=== PATIENT | female | born 1955 | race Caucasian/White ===

== ENCOUNTER 2020-12-04 21:52 | Observation (INO) | payer OTHER ==
[~2020-12-04] VITALS: Ht 152.4 cm; Wt 82.3 kg
--- NOTE | 2020-12-04 22:35 | REPVR ---
PROCEDURE INFORMATION: Exam: CT Head Without Contrast Exam date and time: 12/04/2020 10:20 PM Age: 64 years old Clinical indication: Pain; Other: CVA - nursing interventions must not delay CT TECHNIQUE: Imaging protocol: Computed tomography of the head without contrast. Radiation optimization: All CT scans at this facility use at least one of these dose optimization techniques: automated exposure control; mA and/or kV adjustment per patient size (includes targeted exams where dose is matched to clinical indication); or iterative reconstruction. COMPARISON: No relevant prior studies available. FINDINGS: Brain: Normal. No hemorrhage. Unremarkable white matter. No mass effect. Cerebral ventricles: No ventriculomegaly. Paranasal sinuses: Visualized sinuses are unremarkable. No fluid levels. Mastoid air cells: Visualized mastoid air cells are well aerated. Bones/joints: Unremarkable. No acute fracture. Soft tissues: Unremarkable. IMPRESSION: No acute intracranial abnormality. Electronically signed by: Lance Pierre On 12/04/2020 22:35:33 PM
--- NOTE | 2020-12-04 22:52 | REPVR ---
PROCEDURE INFORMATION: Exam: XR Chest Exam date and time: 12/04/2020 10:33 PM Age: 64 years old Clinical indication: Other: CVA TECHNIQUE: Imaging protocol: XR of the chest. Views: 1 view. COMPARISON: No relevant prior studies available. FINDINGS: Lungs: Unremarkable. No consolidation. Pleural spaces: Unremarkable. No pleural effusion. No pneumothorax. Heart/Mediastinum: Unremarkable. No cardiomegaly. Bones/joints: Unremarkable. IMPRESSION: No acute findings. Electronically signed by: Lance Pierre On 12/04/2020 22:51:21 PM
[2020-12-04 22:57] LABS: BASO # 0.1 10^3/uL (0.0-0.2); BASO % 0.6 % (0.0-1.0); EOS # 0.1 10^3/uL (0.0-0.5); EOS % 1.1 % (0.0-3.0); HEMATOCRIT 46.7 % (36.0-47.0); HEMOGLOBIN 15.1 g/dl (12.0-15.5); LYMPH # 1.8 10^3/uL (1.5-5.0); LYMPH % 13.8 % (24.0-44.0); MEAN CORPUSCULAR HEMOGLOBIN 27.9 pg (27.0-33.0); MEAN CORPUSCULAR HGB CONC 32.3 g/dl (32.0-36.5); MEAN CORPUSCULAR VOLUME 86.3 fl (80.0-96.0); MONO # 0.9 10^3/uL (0.0-0.8); MONO % 7.2 % (2.0-8.0); NEUTROPHILS # 9.9 10^3/uL (1.5-8.5); PLATELET COUNT, AUTOMATED 276 10^3/uL (150-450); RED BLOOD COUNT 5.41 10^6/uL (4.00-5.40); WHITE BLOOD COUNT 12.8 10^3/uL (4.0-10.0)
[2020-12-04] MEDS ORDERED: METO1TAB33 PO (22:57)
[2020-12-04] MEDS ORDERED: OMEP40CA4 PO (22:57)
[2020-12-04] MEDS ORDERED: ROSU20TA5 PO (22:57)
[2020-12-04] MEDS ORDERED: LOSA100T50 PO (22:57)
[2020-12-04] MEDS ORDERED: LORazepam 2 MG/ML VIAL IV STA (23:21)
[2020-12-04 23:23] LABS: CK-MB VALUE MASS 1.7 NG/ML (<3.6); CPK CREATINE PHOSPHOKINASE 40 U/L (26-192); MB/CK RELATIVE INDEX 4.25 (< OR =4); TROPONIN I < 0.02 NG/ML (< 0.10)
[2020-12-04 23:43] LABS: ETHYL ALCOHOL (ETHANOL) < 0.003 % (0.000-0.010)
[2020-12-05] VITALS (7 sets, daily range): BP systolic 133–184; BP diastolic 73–100
--- NOTE | 2020-12-05 03:37 | REPVR ---
PROCEDURE INFORMATION: Exam: MR Head Without Contrast Exam date and time: 12/05/2020 3:03 AM Age: 64 years old Clinical indication: Dizziness and other: Vertigo; Additional info: New onset, severe vertigo TECHNIQUE: Imaging protocol: MR of the head without contrast. COMPARISON: CT Head without contrast 2020-12-04 22:17 FINDINGS: Brain: Questionable tiny punctate recent lacunar infarct in the right cheri midbrain junction on series 204, image 1. Mild scattered FLAIR hyperintense foci within the supratentorial deep and subcortical white matter suggesting mild chronic small vessel ischemic disease. No gradient susceptibility blooming within the brain parenchyma to suggest hemorrhage. No midline shift, mass, or fluid collection is present. Diffuse cerebral age related volume loss. Cerebral ventricles: Normal. No ventriculomegaly. Bones/joints: Unremarkable. Paranasal sinuses: Normal as visualized. No acute sinusitis. Mastoid air cells: Normal as visualized. No mastoid effusion. Orbital cavity: Unremarkable. Soft tissues: Unremarkable. Vertebral arteries: Indentation of the left aspect of the cervicomedullary junction by a tortuous ectatic left vertebral artery, refer to series 501, image 1. IMPRESSION: 1. Questionable tiny punctate recent lacunar infarct in the right cheri midbrain junction on series 204, image 1. 2. Indentation of the left aspect of the cervicomedullary junction by a tortuous ectatic left vertebral artery, refer to series 501, image 1. Electronically signed by: Lance Pierre On 12/05/2020 03:36:14 AM
--- NOTE | 2020-12-05 03:46 | REPVR ---
PROCEDURE INFORMATION: Exam: MRA Head Without Contrast; Arteriography Exam date and time: 12/05/2020 3:03 AM Age: 64 years old Clinical indication: Vertigo; Additional info: New onset, severe vertigo TECHNIQUE: Imaging protocol: Magnetic resonance angiography head without contrast. Exam focused on the arteries. COMPARISON: CT Head without contrast 2020-12-04 22:17 FINDINGS: ANTERIOR CIRCULATION: Right internal carotid artery: Possible 2 mm right paraclinoid ICA lateral projecting aneurysm versus atherosclerotic irregularity. Right middle cerebral artery: No occlusion or significant stenosis. No aneurysm. Right anterior cerebral artery: Mild moderate distal right MODE A1 segment stenosis. Large anterior communicating artery. Left internal carotid artery: Possible 2 mm left paraclinoid lateral projecting ICA aneurysm versus atherosclerotic irregularity. Left middle cerebral artery: No occlusion or significant stenosis. No aneurysm. Left anterior cerebral artery: No occlusion or significant stenosis. No aneurysm. POSTERIOR CIRCULATION: Right vertebral artery: No occlusion or significant stenosis. No aneurysm. Left vertebral artery: Left vertebral artery and prominent PICA branch course along the left anterior aspect of cranial cervical junction and indent the cervicomedullary junction of the spinal cord. Widely patent left vertebral artery. Basilar artery: No occlusion or significant stenosis. No aneurysm. Right posterior cerebral artery: No occlusion or significant stenosis. No aneurysm. Left posterior cerebral artery: Patent type left JACKERMAN. IMPRESSION: 1. Left vertebral artery and prominent PICA branch course along the left anterior aspect of cranial cervical junction and indent the cervicomedullary junction of the spinal cord. 2. Possible 2 mm left paraclinoid lateral projecting ICA aneurysm versus atherosclerotic irregularity. Possible 2 mm right paraclinoid ICA lateral projecting aneurysm versus atherosclerotic irregularity. 3. Patent type left JACKERMAN. 4. Mild moderate distal right MODE A1 segment stenosis. Large anterior communicating artery. Electronically signed by: Lance Pierre On 12/05/2020 03:46:18 AM
[2020-12-05] MEDS ORDERED: LABETALOL 100MG/20ML VIAL IV STA (04:18)
[2020-12-05] MEDS ORDERED: CETI-24 PO (04:40)
[2020-12-05] MEDS ORDERED: AMOX875T2 PO (04:40)
[2020-12-05] MEDS ORDERED: MAALOX 30 ML SUSP *UDC PO PRN (05:00)
[2020-12-05] MEDS ORDERED: NICOTINE 21MG/24HR 1 EA TRANSDERMAL TD ONE (05:00)
[2020-12-05] MEDS ORDERED: MOM 30ML SUSPENSION UDC PO PRN (05:00)
--- NOTE | 2020-12-05 05:38 | HPEPDOC ---
[facility] Medical History & Physical Date of Admission Dec 05, 2020 Date of Service: Dec 05, 2020 Attending Physician: ANNELIESE RADFORD MD History and Physical CHIEF COMPLAINT: Dizziness, left side numbness with slurred speech and confusion HISTORY OF PRESENT ILLNESS: Ms. Sheets is a 64-year-old female who is brought to the ER by family with complaints of dizziness, left-sided numbness and slurred speech with some confusion. By the time she had arrived at ER, the left-sided numbness, slurred speech and confusion had resolved. The patient had been having these symptoms on and off over the last week or so. Last Sunday she noticed numbness in the right face with pins and needles in her hands and blurred vision, almost to the point of blindness. These symptoms lasted about a minute. She thought it was a reaction to a new medication and took some Benadryl and went" slept it off". She was fine on Sunday and Sunday and on Sunday she started experiencing symptoms again. This time she also had some nausea and a feeling of "not feeling well. He went to [facility] and was admitted. CT scan was negative. She was told to follow-up with primary care for better control of her blood pressure which was elevated. She couldn't get in to see her primary care provider and felt worse. By Sunday, so she went to the hospital at [place]. She was diagnosed and treated for a sinus infection was with felt to be causing all of these symptoms. She was started on amoxicillin and told to follow-up with primary care. She was visiting with family earlier today when she experienced the symptoms noted above. They finally convinced her to come to the ER after a couple of hours. On initial evaluation she was noted to have a blood pressure of 189/94. Heart rate was in the mid 80s. She was afebrile with O2 sats of 90-93% on 2 L of oxygen. The patient continues to smoke at least a pack of cigarettes per day. She tells me she was previously diagnosed with atrial fibrillation but it was felt to be secondary to diet pills. She thinks that one of the doctors at the other 2 facilities in the last week. Said that her atrial fib was still present. She is not on blood thinners and states she is allergic to aspirin. She does take metoprolol daily. She stopped taking her statin about a year ago because she "ran out". She said with Covid, and babysitting her grandson, the timing was never right to make an appointment with a physician to get that prescription renewed. Chest x-ray and CT scan were negative. MRI showed the paranasal sinuses with no acute sinusitis. There was a tiny punctate recent lacunar infarct in the right cheri, midbrain junction. There is also an indentation of the left aspect of the cervical medullary junction by a tortuous ectatic left vertebral artery. MRA showed a left vertebral artery and prominent PICA branch coursed along the left anterior aspect of the cranial cervical junction and indent the cervical medullary junction of the spinal cord. There was a possible 2 mm left paraclinoid lateral projecting ICA aneurysm versus atherosclerotic irregularity. There was also a possible 2 mm right paraclinoid ICA. Lateral projecting aneurysm versus atherosclerotic irregularity. 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 There was a large anterior communicating artery. Patient was not a candidate for TPA as she arrived at the hospital outside of the window from the time of onset of symptoms. She was given a dose of labetalol in the ER as well as 1 mg of Ativan. PAST MEDICAL HISTORY: 1. Hypertension. 2. Hyperlipidemia. 3. Atrial fibrillation, possibly secondary to diet pills. 4. Hyperlipidemia PAST SURGICAL HISTORY: 1. Hysterectomy. 2. . 3. Meniscus repair. 4. Heart catheterization. 5. Cataracts. 6. Appendectomy SOCIAL HISTORY: Tobacco use: Patient currently smokes at least one pack of cigarettes per day ETOH: She denies alcohol Illicit drug use: Denies illegal drugs FAMILY HISTORY: Family history was thoroughly reviewed and found to be noncontributory. REVIEW OF SYSTEMS: Complete 10 point review systems is negative except as noted above PHYSICAL EXAMINATION: Patient is seen in the ER, lying on the stretcher.. She complains of being tired and is a little bit lethargic but oriented x 3. HEENT is WNL. . There is no facial droop. Tongue is midline. Speech is clear and easily understood. Neck is supple. Lungs with some expiratory wheeze. Heart regular rate and rhythm without murmur. Abdomen is soft, non-tender to palpation with bowel sounds positive. Extremities with good ROM and strength equal bilaterally. No lower extremity edema. Pedal pulses are positive. Skin is warm and dry with no obvious rash or lesion. Neuro: grossly intact. Psych: As noted. ASSESSMENT AND PLAN: 1. Cerebrovascular accident. Patient will be restarted on statin and will add Plavix with allergy to aspirin. We'll ask physical and occupational therapist to evaluate and treat. Will check lipid panel and TSH. Patient would benefit from a neurology consult. 2. Hypertension, essential. Continue home metoprolol and losartan. Will monitor with routine vital signs and adjust medications as needed based on trends. 3. Leukocytosis secondary to acute cerebrovascular accident. Patient will be continued on home amoxicillin for now for treatment of reported acute sinusitis. Recheck white blood cell count in the morning. 4. Hyperlipidemia. Continue statin. 5. Hyperglycemia with no history of diabetes. Will check HbA1c in the morning. Monitor blood glucose with daily labs. 6. Tobacco abuse. Patient will be counseled for cessation. Nicotine patch. 7. History of atrial fibrillation on no anticoagulation. Continue metoprolol. Monitor on telemetry. May need to consider addition of anticoagulation. Will start the patient on Plavix for now. 8. DVT prophylaxis. Will add Lovenox. CODE STATUS: CODE STATUS was discussed with the patient. He desires to be considered a full code. She states her sister, Elizabeth Moralez, would act as her surrogate if she were unable to make her own decisions. Patient is considered high risk of further deterioration including extension of stroke. She is admitted for close observation and further evaluation and expected to remain at least one midnight. Vital Signs Vital Signs Date Time Temp Pulse Resp B/P (MAP) Pulse Ox O2 Delivery O2 Flow Rate FiO2 12/05/20 03:37 85 18 90 Nasal Cannula 2.0 12/05/20 03:26 179/102 (127) 12/04/20 22:10 98.1 Laboratory Data Labs 24H Laboratory Tests 2 12/04/20 22:45: Bedside Glucose (Misc Panel) 134H 12/04/20 22:46: Immature Granulocyte % (Auto) 0.3, Neutrophils (%) (Auto) 77.0H, Lymphocytes (%) (Auto) 13.8L, Monocytes (%) (Auto) 7.2, Eosinophils (%) (Auto) 1.1, Basophils (%) (Auto) 0.6, Neutrophils # (Auto) 9.9H, Lymphocytes # (Auto) 1.8, Monocytes # (Auto) 0.9H, Eosinophils # (Auto) 0.1, Basophils # (Auto) 0.1, Nucleated Red Blood Cells % (auto) 0.0, Activated Partial Thromboplast Time 37.1, Total Creatine Kinase 40, Creatine Kinase MB 1.7, Creatine Kinase MB Relative Index 4.25H, Troponin I < 0.02, Ethyl Alcohol Level < 0.003 12/04/20 22:47: POC Glucose (Misc Panel) 129H, POC Sodium (Misc Panel) 144, POC Potassium (Misc Panel) 3.5, POC Chloride (Misc Panel) 104, POC Total CO2 (Misc Panel) 25.0, POC Blood Urea Nitrogen (Misc Panel 11, POC Ionized Calcium (Misc Panel) 4.7, POC Creatinine (Misc Panel) 0.5L, POC Hematocrit (Misc Panel) 46.0 12/04/20 22:50: POC Prothrombin Time (Misc) 12.4, POC INR (Misc) 1.0 CBC/BMP Laboratory Tests 12/04/20 22:46 Home Medications Scheduled Amoxicillin/Potassium Clav (Amox-Clav 875-125 mg Tablet) 1 Each Tablet, 1 TAB PO BID started on 12/04/20 x 10 days Cetirizine HCl (Cetirizine HCl) 10 Mg Tablet, 10 MG PO DAILY Losartan Potassium (Losartan Potassium) 100 Mg Tablet, 100 MG PO DAILY Metoprolol Succinate (Metoprolol Succinate) 100 Mg Tab.er.24h, 100 MG PO DAILY Omeprazole (Omeprazole) 40 Mg Capsule.dr, 40 MG PO DAILY Rosuvastatin Calcium (Rosuvastatin Calcium) 20 Mg Tablet, 20 MG PO QPM Allergies Coded Allergies: erythromycin base (Verified Allergy, Unknown, 12/04/20) atorvastatin (Verified Adverse Reaction, Unknown, PRICKLY SENSATION IN CHEST, 12/04/20) tetracycline (Verified Adverse Reaction, Unknown, GERD, 12/04/20) A-FIB/CHADSVASC A-FIB History Current/History of A-Fib/PAF?: Yes Current PO Anticoag Therapy: No Age/Risk Factor Scoring CHADSVASC: CHADSVASC Response (Comments) Value Age Risk Factor Age < 65 years old 0 Gender Risk Factor Female 1 Hx of CHF No 0 Hx of HTN Yes 1 Hx of Stroke/TIA/or VTE Yes 2 Hx of Diabetes No 0 Hx of Vascular Disease No 0 Total 4 Treatment Treatment ordered: NONE Reason Anticoagulant not given: Other Other reason anticoagulant not: Awaiting Neurology consult and possible Cardiac consult MARIA L WAITE Dec 05, 2020 05:38
[2020-12-05 05:59] LABS: RSV AMPLIFICATION NEGATIVE (NEGATIVE)
[2020-12-05 07:46] LABS: HEMATOCRIT 46.1 % (36.0-47.0); HEMOGLOBIN 14.5 g/dl (12.0-15.5); MEAN CORPUSCULAR HEMOGLOBIN 27.4 pg (27.0-33.0); MEAN CORPUSCULAR HGB CONC 31.5 g/dl (32.0-36.5); PLATELET COUNT, AUTOMATED 273 10^3/uL (150-450); WHITE BLOOD COUNT 8.6 10^3/uL (4.0-10.0)
[2020-12-05 08:02] LABS: HEMOGLOBIN A1c 6.2 %
[2020-12-05] MEDS: ENOXAPARIN 40MG/0.4ML SYRINGE (J1650 PER 10MG) SC SCH (08:04)
[2020-12-05] MEDS: LOSARTAN 50MG TABLET PO SCH (08:05)
[2020-12-05] MEDS: OMEPRAZOLE 20 MG CAP PO SCH (08:05)
[2020-12-05] MEDS: CLOPIDOGREL 75 MG TAB PO SCH (08:05)
[2020-12-05] MEDS: METOPROLOL SUCC (TopROL XL) 100MG *XL* TAB PO SCH (08:06)
[2020-12-05] MEDS: CETIRIZINE (ZyrTEC) 10 MG TAB PO SCH (08:06)
[2020-12-05] MEDS: ACETAMINOPHEN TAB 650MG DOSE (2X325MG) PO PRN (08:08)
[2020-12-05 08:19] LABS: BLOOD UREA NITROGEN 9 MG/DL (7-18); CALCIUM LEVEL 8.6 MG/DL (8.8-10.2); CARBON DIOXIDE LEVEL 31 MEQ/L (21-32); CHLORIDE LEVEL 108 MEQ/L (98-107); CHOLESTEROL LEVEL 250 MG/DL (<200); CHOLESTEROL RISK RATIO 5.952 (<5); GLOMERULAR FILTRATION RATE > 60.0 (>45); GLUCOSE, FASTING 132 MG/DL (70-100); HDL CHOLESTEROL 42 MG/DL (>40); LDL CHOLESTEROL 174 MG/DL (<100); MAGNESIUM LEVEL 2.2 MG/DL (1.8-2.4); NON-HDL-C 208 MG/DL; POTASSIUM SERUM 3.8 MEQ/L (3.5-5.1); SODIUM LEVEL 143 MEQ/L (136-145); TRIGLYCERIDES LEVEL 171 MG/DL (<150)
[2020-12-05] MEDS ORDERED: AUGMENTIN 875 MG TAB PO SCH ×2 (09:00→11:03)
[2020-12-05] MEDS: AUGMENTIN 875 MG TAB PO SCH ×2 (11:07→20:19)
[2020-12-05] MEDS ORDERED: hydrALAZINE 20MG/ML 1ML VIAL (J0360 PER 20MG) IV PRN (12:00)
--- NOTE | 2020-12-05 12:42 | ECHO ---
ECHOCARDIOGRAM DATE OF PROCEDURE: 12/05/2020 Age: 64 Gender: Female Height: 152 cm. Weight: 82 kg. REFERRING PHYSICIAN: Khanh Del Rosario M.D. INDICATION: Stroke. MEASUREMENTS: IVS 1.0 cm LV 5.1 cm LVPW 1.2 cm LA 3.4 cm Aorta 3.2 cm Left atrium volume 26 mL/m2 Mitral E wave velocity 78 cm/sec A wave 81 cm/sec E prime septal 5.6 cm/sec E prime lateral 5.8 cm/sec FINDINGS: This study is of fair technical quality with limited visualization. Left ventricle is normal size. Borderline left ventricular hypertrophy (LVH) is noted. Overall likely normal left ventricular (LV) systolic function based on fair views. I estimate ejection fraction (EF) around 55-60%. Right ventricle was poorly visualized, but appears normally contractile. I cannot rule out mild enlargement. Both atria appear normal. Aortic, mitral and tricuspid valves also appear normal based on fair views. Pulmonic valve was not visualized. No pericardial effusion was noted. Inferior vena cava was not seen. Aortic root and aortic arch appear normal. Abdominal aorta was not visualized. Doppler interrogation revealed competent aortic, mitral and tricuspid valves. Mitral inflow pattern and tissue Doppler velocity of mitral annulus revealed grade 1 diastolic dysfunction. CONCLUSIONS: 1. Study is of acceptable technical quality, underlying sinus rhythm. 2. Normal left ventricular (LV) size with likely normal LV systolic function and grade 1 diastolic dysfunction. 3. No significant valvular disease. 4. Unable to estimate central venous pressure and pulmonary artery pressure. 5. Negative "bubble study," indicative of absence of intracardiac shunt. MTDD
[2020-12-05] MEDS ORDERED: CHLORTHALIDONE 25 MG TAB PO ONE (14:00)
--- NOTE | 2020-12-05 15:47 | IPNPDOC ---
Text Note Date of Service The patient was seen on 12/05/20. NOTE Subjective: No any acute events overnight, patient denied any neurological de ficit Objective: GENERAL APPEARANCE: NAD HEENT: no scleral icterus, no JVD, EOMI CARDIOVASCULAR: S1S2 LUNGS: CTA ABDOMEN: soft & not tender w palpitation MUSCULOSKELETAL: no cyanosis, no swelling INTEGUMENT: no generalized pallor NEUROLOGICAL: cranial nerve function from 2-12 intact intact, follows commands, speech not dysarthric Assessment and plan Patient 64 years old female with past medical history of hypertension, hyperlipidemia, atrial fibrillation presented to hospital with dizziness, left- sided numbness and slurred speech. TIA I talked to neurologist team Dr. Leo he recommended to repeat MRI because patient's symptoms could be attributed to hypertensive emergency, keep systolic blood pressure below 140 MRI showed Questionable tiny punctate recent lacunar infarct in the right cheri midbrain junction on series 204, image 1 Echo negative for PFO, stage I diastolic dysfunction Statin, Plavix Appreciate/agree with neurologist consult Telemetry Hypertension Amlodipine, chlorthalidone, losartan Atrial fibrillation Paroxysmal Started anticoagulation with Xarelto Hyperlipidemia Continue statin Smoking abuse Counseling VS,Khloe, I+O VS, Khloe, I+O Laboratory Tests 12/04/20 22:46 12/05/20 07:33 Vital Signs Date Time Temp Pulse Resp B/P (MAP) Pulse Ox O2 Delivery O2 Flow Rate FiO2 12/05/20 14:46 166/100 (122) 12/05/20 12:00 97.5 78 17 91 Nasal Cannula 2.0 DENNIS SHANE DO Dec 05, 2020 15:47
[2020-12-05] MEDS: **hydrALAZINE** 10 MG TAB PO SCH ×2 (16:35→22:37)
[2020-12-05] MEDS: RIVAROXABAN 20 MG TAB (XARELTO) PO SCH (17:52)
[2020-12-05] MEDS: CHLORTHALIDONE 25 MG TAB PO SCH (20:18)
[2020-12-05] MEDS: ROSUVASTATIN 10 MG TAB (CRESTOR) PO SCH (20:23)
--- NOTE | 2020-12-05 22:05 | ECGEPIP ---
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
[2020-12-06] VITALS (7 sets, daily range): BP systolic 125–152; BP diastolic 66–90
[2020-12-06 05:30] LABS: HEMATOCRIT 48.5 % (36.0-47.0); HEMOGLOBIN 15.7 g/dl (12.0-15.5); MEAN CORPUSCULAR HEMOGLOBIN 27.9 pg (27.0-33.0); MEAN CORPUSCULAR HGB CONC 32.4 g/dl (32.0-36.5); MEAN CORPUSCULAR VOLUME 86.3 fl (80.0-96.0); PLATELET COUNT, AUTOMATED 297 10^3/uL (150-450); RED BLOOD COUNT 5.62 10^6/uL (4.00-5.40); WHITE BLOOD COUNT 8.8 10^3/uL (4.0-10.0)
[2020-12-06] MEDS: **hydrALAZINE** 10 MG TAB PO SCH ×2 (05:49→13:25)
[2020-12-06 05:50] LABS: BLOOD UREA NITROGEN 11 MG/DL (7-18); CALCIUM LEVEL 9.1 MG/DL (8.8-10.2); CARBON DIOXIDE LEVEL 32 MEQ/L (21-32); CHLORIDE LEVEL 105 MEQ/L (98-107); CREATININE FOR GFR 0.68 MG/DL (0.55-1.30); GLOMERULAR FILTRATION RATE > 60.0 (>45); GLUCOSE, FASTING 134 MG/DL (70-100); POTASSIUM SERUM 3.9 MEQ/L (3.5-5.1); SODIUM LEVEL 142 MEQ/L (136-145)
[2020-12-06] MEDS ORDERED: CHLORTHALIDONE 25 MG TAB PO SCH ×2 (09:00→21:00)
[2020-12-06] MEDS: ENOXAPARIN 40MG/0.4ML SYRINGE (J1650 PER 10MG) SC SCH (09:38)
[2020-12-06] MEDS: OMEPRAZOLE 20 MG CAP PO SCH (09:39)
[2020-12-06] MEDS: CETIRIZINE (ZyrTEC) 10 MG TAB PO SCH (09:40)
[2020-12-06] MEDS: METOPROLOL SUCC (TopROL XL) 100MG *XL* TAB PO SCH (09:40)
[2020-12-06] MEDS: CLOPIDOGREL 75 MG TAB PO SCH (09:40)
[2020-12-06] MEDS: LOSARTAN 50MG TABLET PO SCH (09:40)
[2020-12-06] MEDS: CHLORTHALIDONE 25 MG TAB PO SCH (09:41)
[2020-12-06] MEDS: AUGMENTIN 875 MG TAB PO SCH ×2 (09:41→20:09)
[2020-12-06] MEDS: ACETAMINOPHEN TAB 650MG DOSE (2X325MG) PO PRN (11:07)
[2020-12-06] MEDS ORDERED: LORazepam 2 MG/ML VIAL IV ONE (13:40)
--- NOTE | 2020-12-06 13:55 | IPNPDOC ---
Text Note Date of Service The patient was seen on 12/06/20. NOTE Subjective: No any acute events overnight. Patient denied any focal weaknesses or numbness Objective: GENERAL APPEARANCE: NAD HEENT: no scleral icterus, no JVD, EOMI CARDIOVASCULAR: S1S2 LUNGS: CTA ABDOMEN: soft & not tender w palpitation MUSCULOSKELETAL: no cyanosis, no swelling INTEGUMENT: no generalized pallor NEUROLOGICAL: cranial nerve function from 2-12 intact intact, follows commands, speech not dysarthric Assessment and plan Patient 64 years old female with past medical history of hypertension, hyperlipidemia, atrial fibrillation presented to hospital with dizziness, left- sided numbness and slurred speech. TIA I talked to neurologist team Dr. Leo he recommended to repeat MRI because patient's symptoms could be attributed to hypertensive emergency, keep systolic blood pressure below 140 MRI showed Questionable tiny punctate recent lacunar infarct in the right cheri midbrain junction on series 204, image 1 Echo negative for PFO, stage I diastolic dysfunction Statin, Plavix Telemetry We will repeat MRI today Hypertension Blood pressure under control Amlodipine, chlorthalidone, losartan Atrial fibrillation Paroxysmal Started anticoagulation with Xarelto Hyperlipidemia Continue statin Smoking abuse Counseling VS,Khloe, I+O VS, Khloe, I+O Laboratory Tests 12/06/20 05:02 Vital Signs Date Time Temp Pulse Resp B/P (MAP) Pulse Ox O2 Delivery O2 Flow Rate FiO2 12/06/20 13:25 152/77 12/06/20 12:00 98.6 74 18 93 Room Air 12/05/20 16:00 2.0 I&O- Last 24 Hours up to 6 AM 12/06/20 06:00 Intake Total 1200 ml Output Total 2850 ml Balance -1650 ml DENNIS SHANE DO Dec 06, 2020 13:55
[2020-12-06] MEDS ORDERED: LORazepam 2 MG/ML VIAL As Ordered ONE (14:35)
--- NOTE | 2020-12-06 16:42 | REPVR ---
PROCEDURE INFORMATION: Exam: MR Head Without Contrast Exam date and time: 12/06/2020 4:02 PM Age: 64 years old Clinical indication: Altered mental status/memory loss; Confusion or disorientation; Patient HX: AMS that has since subsided; Additional info: R/O stroke TECHNIQUE: Imaging protocol: MR of the head without contrast. COMPARISON: MRI-Brain without Contrast 12/05/2020 2:44 AM FINDINGS: Brain: There is no evidence of an acute ischemic event. Signal changes in the periventricular white matter are nonspecific but statistically most likely reflect chronic microvascular ischemic disease. There is no evidence of intracranial hemorrhage. No abnormal extra-axial fluid collections are identified. Cerebral ventricles: The ventricles are normal in size and configuration. Paranasal sinuses: There is mild sinus mucosal disease, with no air-fluid level identified. Mastoid air cells: There is no mastoid effusion detected. Orbital cavity: The appearance of the optic globes suggests previous bilateral cataract surgery. IMPRESSION: 1. No acute ischemia, mass or hemorrhage. 2. Signal changes in the periventricular white matter are nonspecific but statistically most likely reflect chronic microvascular ischemic disease. Electronically signed by: Kayla Brady On 12/06/2020 16:42:17 PM
[2020-12-06] MEDS ORDERED: XARE20TA PO (17:32)
[2020-12-06] MEDS ORDERED: CLOP75TA2 PO (17:32)
[2020-12-06] MEDS ORDERED: CHLO25TA PO (17:32)
[2020-12-06] MEDS ORDERED: AMLO1TAB25 PO (17:32)
--- NOTE | 2020-12-06 17:43 | DS.PDOC ---
Discharge Summary General Date of Admission Dec 04, 2020 at 21:53 Date of Discharge 12/06/20 Discharge Summary PROCEDURES PERFORMED DURING STAY: [None]. ADMITTING DIAGNOSES: TIA Hypertension Atrial fibrillation Hyperlipidemia Smoking abuse DISCHARGE DIAGNOSES: Hypertensive urgency TIA Hypertension Atrial fibrillation Hyperlipidemia Smoking abuse COMPLICATIONS/CHIEF COMPLAINT: CVA. HISTORY OF PRESENT ILLNESS:Ms. Sheets is a 64-year-old female who is brought to the ER by family with complaints of dizziness, left-sided numbness and slurred speech with some confusion. By the time she had arrived at ER, the left- sided numbness, slurred speech and confusion had resolved. The patient had been having these symptoms on and off over the last week or so. Last Sunday she noticed numbness in the right face with pins and needles in her hands and blurred vision, almost to the point of blindness. These symptoms lasted about a minute. She thought it was a reaction to a new medication and took some Benadryl and went" slept it off". She was fine on Sunday and Sunday and on Sunday she started experiencing symptoms again. This time she also had some nausea and a feeling of "not feeling well. He went to [facility] and was admitted. CT scan was negative. She was told to follow-up with primary care for better control of her blood pressure which was elevated. She couldn't get in to see her primary care provider and felt worse. By Sunday, so she went to the hospital at [place]. She was diagnosed and treated for a sinus infection was with felt to be causing all of these symptoms. She was started on amoxicillin and told to follow-up with primary care. She was visiting with family earlier today when she experienced the symptoms noted above. They finally convinced her to come to the ER after a couple of hours. On initial evaluation she was noted to have a blood pressure of 189/94. Heart rate was in the mid 80s. She was afebrile with O2 sats of 90-93% on 2 L of oxygen. The patient continues to smoke at least a pack of cigarettes per day. She tells me she was previously diagnosed with atrial fibrillation but it was felt to be secondary to diet pills. She thinks that one of the doctors at the other 2 facilities in the last week. Said that her atrial fib was still present. She is not on blood thinners and states she is allergic to aspirin. She does take metoprolol daily. She stopped taking her statin about a year ago because she "ran out". She said with Covid, and babysitting her grandson, the timing was never right to make an appointment with a physician to get that prescription renewed. Chest x-ray and CT scan were negative. MRI showed the paranasal sinuses with no acute sinusitis. There was a tiny punctate recent lacunar infarct in the right cheri, midbrain junction. There is also an indentation of the left aspect of the cervical medullary junction by a tortuous ectatic left vertebral artery. MRA showed a left vertebral artery and prominent PICA branch coursed along the left anterior aspect of the cranial cervical junction and indent the cervical medullary junction of the spinal cord. There was a possible 2 mm left paraclinoid lateral projecting ICA aneurysm versus atherosclerotic irregularity. There was also a possible 2 mm right paraclinoid ICA. Lateral projecting a neurysm versus atherosclerotic irregularity. Patient had a patent type left [employer] and a mild to moderate distal right MODE A1 segment stenosis. There was a large anterior communicating artery. Patient was not a candidate for TPA as she arrived at the hospital outside of the window from the time of onset of symptoms. She was given a dose of labetalol in the ER as well as 1 mg of Ativan. HOSPITAL COURSE: During the hospital stay and the following issues addressed TIA I talked to neurologist team Dr. Peñaudin he recommended to repeat MRI because patient's symptoms could be attributed to hypertensive emergency, keep systolic blood pressure below 140 MRI showed Questionable tiny punctate recent lacunar infarct in the right cheri midbrain junction on series 204, image 1. Repeated MRI was negative for stroke, positive for chronic microvascular ischemic disease Echo negative for PFO, stage I diastolic dysfunction Statin, Plavix Telemetry Hypertension Blood pressure under control Amlodipine, chlorthalidone, losartan Atrial fibrillation Paroxysmal Started anticoagulation with Xarelto Hyperlipidemia Continue statin Smoking abuse Counseling DISCHARGE MEDICATIONS: Please see below. ALLERGIES: Please see below. PHYSICAL EXAMINATION ON DISCHARGE: VITAL SIGNS: Please see below. GENERAL APPEARANCE: NAD HEENT: no scleral icterus, no JVD, EOMI CARDIOVASCULAR: S1S2 LUNGS: CTA ABDOMEN: soft & not tender w palpitation MUSCULOSKELETAL: no cyanosis, no swelling INTEGUMENT: no generalized pallor NEUROLOGICAL: cranial nerve function from 2-12 intact intact, follows commands, speech not dysarthric LABORATORY DATA: Please see below. IMAGING: PROCEDURE INFORMATION: Exam: MR Head Without Contrast Exam date and time: 12/06/2020 4:02 PM Age: 64 years old Clinical indication: Altered mental status/memory loss; Confusion or disorientation; Patient HX: AMS that has since subsided; Additional info: R/O stroke TECHNIQUE: Imaging protocol: MR of the head without contrast. COMPARISON: MRI-Brain without Contrast 12/05/2020 2:44 AM FINDINGS: Brain: There is no evidence of an acute ischemic event. Signal changes in the periventricular white matter are nonspecific but statistically most likely reflect chronic microvascular ischemic disease. There is no evidence of intracranial hemorrhage. No abnormal extra-axial fluid collections are identified. Cerebral ventricles: The ventricles are normal in size and configuration. Paranasal sinuses: There is mild sinus mucosal disease, with no air-fluid level identified. Mastoid air cells: There is no mastoid effusion detected. Orbital cavity: The appearance of the optic globes suggests previous bilateral cataract surgery. IMPRESSION: 1. No acute ischemia, mass or hemorrhage. 2. Signal changes in the periventricular white matter are nonspecific but statistically most likely reflect chronic microvascular ischemic disease. PROGNOSIS: Fair ACTIVITY: [As tolerated]. DIET: Cardiac DISCHARGE INSTRUCTIONS: Stop smoking ITEMS TO FOLLOWUP ON ON OUTPATIENT: Follow-up with neurologist in 1 week DISCHARGE CONDITION: [Stable]. TIME SPENT ON DISCHARGE: 40 minutes. Vital Signs/I&Os Vital Signs Date Time Temp Pulse Resp B/P (MAP) Pulse Ox O2 Delivery O2 Flow Rate FiO2 12/06/20 16:00 97.6 83 22 141/78 (99) 93 Room Air 12/05/20 16:00 2.0 I&O- Last 24 Hours up to 6 AM 12/06/20 06:00 Intake Total 1200 ml Output Total 2850 ml Balance -1650 ml Laboratory Data Labs 24H Laboratory Tests 2 12/06/20 05:02: Nucleated Red Blood Cells % (auto) 0.0, Anion Gap 5L, Glomerular Filtration Rate > 60.0, Calcium Level 9.1 CBC/BMP Laboratory Tests 12/06/20 05:02 Discharge Medications Scheduled Amlodipine Besylate (Amlodipine Besylate) 10 Mg Tablet, 10 MG PO DAILY Amoxicillin/Potassium Clav (Amox-Clav 875-125 mg Tablet) 1 Each Tablet, 1 TAB PO BID, (Reported) started on 12/04/20 x 10 days Cetirizine HCl (Cetirizine HCl) 10 Mg Tablet, 10 MG PO DAILY, (Reported) Chlorthalidone (Chlorthalidone) 25 Mg Tablet, 50 MG PO BID Clopidogrel Bisulfate (Clopidogrel) 75 Mg Tablet, 75 MG PO DAILY Losartan Potassium (Losartan Potassium) 100 Mg Tablet, 100 MG PO DAILY, (Repor kris) Metoprolol Succinate (Metoprolol Succinate) 100 Mg Tab.er.24h, 100 MG PO DAILY, (Reported) Omeprazole (Omeprazole) 40 Mg Capsule.dr, 40 MG PO DAILY, (Reported) Rivaroxaban (Xarelto) 20 Mg Tablet, 20 MG PO DAILY@18 Rosuvastatin Calcium (Rosuvastatin Calcium) 20 Mg Tablet, 20 MG PO QPM, (Reported) Allergies Coded Allergies: erythromycin base (Verified Allergy, Unknown, 12/04/20) atorvastatin (Verified Adverse Reaction, Unknown, PRICKLY SENSATION IN CHEST, 12/04/20) tetracycline (Verified Adverse Reaction, Unknown, GERD, 12/04/20) DENNIS SHANE DO Dec 06, 2020 17:43
[2020-12-06] MEDS: RIVAROXABAN 20 MG TAB (XARELTO) PO SCH (18:00)
[2020-12-06] MEDS: ROSUVASTATIN 10 MG TAB (CRESTOR) PO SCH (20:09)
== END 2020-12-06 20:20 | disposition home or self-care (01) ==
LOC: M ED 21:52 → M ED INP 21:53 → ENRESERV 12-05 06:35 → M PCU 12-05 06:50
PROVIDERS: ADMIT Internal Medicine; ATTEND Internal Medicine
DX: I16.0 Hypertensive urgency (principal); G45.9 Transient cerebral ischemic attack, unspecified; I10 Essential (primary) hypertension; I48.91 Unspecified atrial fibrillation; E78.49 Other hyperlipidemia; D72.829 Elevated white blood cell count, unspecified; F17.218 Nicotine dependence, cigarettes, with other nicotine-induced disorders; Z79.01 Long term (current) use of anticoagulants; Z79.899 Other long term (current) drug therapy; Z88.1 Allergy status to other antibiotic agents; Z88.8 Allergy status to other drugs, medicaments and biological substances
CPT/HCPCS: 36415; 70450; 70544; 70551; 71045; 80047; 80048; 80061; 82077; 82550; 82553; 83036; 83735; 84443; 84484; 85025; 85027; 85730; 87631; 93005; 93041; 93306; 94760; 96372; 96374; 96375; 96376; 97116; 97162; 97165; 97530; 99285; J1650; J2060

== ENCOUNTER → 2021-07-05 | Outpatient (CLI) | payer MEDICARE, OTHER ==
[~2021-07-05] MED LIST: AMLO1TAB25 PO; AMOX875T2 PO; CETI-24 PO; CHLO25TA PO; CLOP75TA2 PO; LOSA100T45 PO; METO1TAB33 PO; OMEP40CA4 PO; ROSU20TA5 PO; XARE20TA PO
== END ==
LOC: M PLAIMG 10:48
DX: J01.91 Acute recurrent sinusitis, unspecified (principal); J34.1 Cyst and mucocele of nose and nasal sinus

== ENCOUNTER → 2022-04-16 | Outpatient (REF) | payer MEDICARE, OTHER | LOC: M LAB REF 18:03 | PROVIDERS: ATTEND Physician Assistant | DX: R30.0 Dysuria (principal) ==

== ENCOUNTER → 2023-11-02 | Outpatient (REF) | payer MEDICARE, OTHER ==
[~2023-11-02] MED LIST changes: -LOSA100T45 PO; +LOSA100T46 PO; -ROSU20TA5 PO; +ROSU20TA61 PO
== END ==
LOC: M SFHCPLAZ 17:17
PROVIDERS: ATTEND Family Medicine
DX: K74.00 Hepatic fibrosis, unspecified (principal); E11.9 Type 2 diabetes mellitus without complications; D50.9 Iron deficiency anemia, unspecified; E55.9 Vitamin D deficiency, unspecified; R31.0 Gross hematuria; E78.2 Mixed hyperlipidemia; I10 Essential (primary) hypertension

== ENCOUNTER → 2023-11-06 | Outpatient (REF) | payer MEDICARE, OTHER | LOC: M SFHCPLAZ 14:49 | PROVIDERS: ATTEND Family Medicine | DX: K74.00 Hepatic fibrosis, unspecified (principal); E11.9 Type 2 diabetes mellitus without complications; D50.9 Iron deficiency anemia, unspecified; E55.9 Vitamin D deficiency, unspecified; R31.0 Gross hematuria; E78.2 Mixed hyperlipidemia; I10 Essential (primary) hypertension; Z53.8 Procedure and treatment not carried out for other reasons ==

== ENCOUNTER → 2023-11-06 | Outpatient (CLI) | payer MEDICARE, OTHER ==
[2023-11-06 08:52] LABS: APPEARANCE, URINE CLOUDY (CLEAR); BACTERIA, URINE AUTO 1+ (NEGATIVE); BILIRUBIN, URINE AUTO NEGATIVE (NEGATIVE); BLOOD, URINE BLOOD 3+ (NEGATIVE); COLOR, URINE YELLOW (YELLOW); GLUCOSE, URINE (UA) AUTO 2+ mg/dL (NEGATIVE); KETONE, URINE AUTO NEGATIVE (NEGATIVE); LEUKOCYTE ESTERASE, URINE AUTO 3+ (NEGATIVE); MUCUS, URINE SMALL (NEGATIVE); NITRITE, URINE AUTO NEGATIVE (NEGATIVE); PROTEIN, URINE AUTO 2+ mg/dL (NEGATIVE); RBC, URINE AUTO TNTC /HPF (0-3); SPECIFIC GRAVITY URINE AUTO 1.016 (1.002-1.035); SQUAMOUS EPITHELIAL CELL UR AU 6 /HPF (0-6); TRANSITIONAL EPITHELIAL AUTO 6 /HPF; UROBILINOGEN, URINE AUTO 0.2 mg/dL (0.0-2.0); WBC, URINE AUTO 37 /HPF (0-3)
[2023-11-06 09:13] LABS: CREATININE, URINE 102.2 MG/DL; MAU/CREAT RATIO 127.2 MCG/MG (0.0-30.0)
[2023-11-06 09:16] LABS: ALBUMIN 3.7 G/DL (3.2-5.2); ALKALINE PHOSPHATASE 89 U/L (46-116); ALT/SGPT 22 U/L (7.0-40); AST/SGOT 13 U/L (<34); BILIRUBIN,TOTAL 0.6 MG/DL (0.3-1.2); BLOOD UREA NITROGEN 18 MG/DL (9-23); CALCIUM LEVEL 9.2 MG/DL (8.3-10.6); CARBON DIOXIDE LEVEL 33 MMOL/L (20-31); CHLORIDE LEVEL 88 MMOL/L (98-107); CHOLESTEROL LEVEL 146 MG/DL (<200); CHOLESTEROL RISK RATIO 3.01 (<5); CREATININE FOR GFR 0.61 MG/DL (0.55-1.30); GLOMERULAR FILTRATION RATE > 60.0 (>45); GLUCOSE, FASTING 232 MG/DL (74-106); HDL CHOLESTEROL 48.4 MG/DL (>40); MAGNESIUM LEVEL 1.3 MG/DL (1.8-2.4); NON-HDL-C 97.6 MG/DL; SODIUM LEVEL 128 MMOL/L (136-145); TOTAL PROTEIN 6.9 G/DL (5.7-8.2); TRIGLYCERIDES LEVEL 158 MG/DL (<150)
[2023-11-06 09:17] LABS: FERRITIN 130.3 NG/ML (7.3-270.7); TOTAL 25(OH) VITAMIN D 20.4 NG/ML (20.0-100.0)
[2023-11-06 09:18] LABS: VITAMIN B12 LEVEL 578 PG/ML (211-911)
[2023-11-06 09:19] LABS: PTH INTACT 78.9 PG/ML (18.5-88.0)
[2023-11-06 09:33] LABS: INR 0.96; PARTIAL THROMBOPLASTIN TIME 32.6 SECONDS (24.8-34.2); PROTHROMBIN TIME 12.5 SECONDS (12.5-14.5)
== END ==
LOC: M LAB 07:25
PROVIDERS: ATTEND Family Medicine
DX: D50.9 Iron deficiency anemia, unspecified (principal); E55.9 Vitamin D deficiency, unspecified; E11.9 Type 2 diabetes mellitus without complications; K74.00 Hepatic fibrosis, unspecified; R31.0 Gross hematuria; E78.2 Mixed hyperlipidemia; I10 Essential (primary) hypertension

== ENCOUNTER → 2023-11-07 | Outpatient (CLI) | payer MEDICARE, OTHER ==
[~2023-11-07] MED LIST changes: +ISOVUE-370 76% 100ML VIAL As Ordered ONE
== END ==
LOC: M RAD 16:11
PROVIDERS: ATTEND Family Medicine
DX: R31.0 Gross hematuria (principal); K76.0 Fatty (change of) liver, not elsewhere classified; K57.90 Diverticulosis of intestine, part unspecified, without perforation or abscess without bleeding
CPT/HCPCS: 74178; Q9967

== ENCOUNTER → 2023-11-13 | Outpatient (CLI) | payer MEDICARE, OTHER ==
[~2023-11-13] MED LIST changes: -ISOVUE-370 76% 100ML VIAL As Ordered ONE
== END ==
LOC: M WHC 09:35
PROVIDERS: ATTEND Family Medicine
DX: Z12.31 Encounter for screening mammogram for malignant neoplasm of breast (principal); Z53.9 Procedure and treatment not carried out, unspecified reason

== ENCOUNTER → 2023-11-21 | Outpatient (CLI) | payer MEDICARE, OTHER ==
[2023-11-21 12:19] LABS: SODIUM,RANDOM URINE 84 MMOL/L
[2023-11-21 12:23] LABS: OSMOLALITY URINE 471 MOSM/KG (50-1400)
[2023-11-21 12:29] LABS: ALBUMIN 3.4 G/DL (3.2-5.2); ALKALINE PHOSPHATASE 84 U/L (46-116); ALT/SGPT 23 U/L (7.0-40); AST/SGOT 9 U/L (<34); BILIRUBIN,TOTAL 0.4 MG/DL (0.3-1.2); BLOOD UREA NITROGEN 15 MG/DL (9-23); CALCIUM LEVEL 9.2 MG/DL (8.3-10.6); CARBON DIOXIDE LEVEL 35 MMOL/L (20-31); CHLORIDE LEVEL 93 MMOL/L (98-107); CREATININE FOR GFR 0.64 MG/DL (0.55-1.30); GLOMERULAR FILTRATION RATE > 60.0 (>45); GLUCOSE, FASTING 184 MG/DL (74-106); POTASSIUM SERUM 4.2 MMOL/L (3.5-5.1); SODIUM LEVEL 134 MMOL/L (136-145); TOTAL PROTEIN 6.5 G/DL (5.7-8.2)
== END ==
LOC: M PLALAB 07:16
PROVIDERS: ATTEND Family Medicine
DX: E87.1 Hypo-osmolality and hyponatremia (principal); K74.00 Hepatic fibrosis, unspecified; I50.32 Chronic diastolic (congestive) heart failure

== ENCOUNTER → 2023-11-26 | Outpatient (CLI) | payer MEDICARE, OTHER | LOC: M PLALAB 07:09 | PROVIDERS: ATTEND Family Medicine | DX: K74.00 Hepatic fibrosis, unspecified (principal) ==

== ENCOUNTER → 2023-12-10 | Outpatient (CLI) | payer MEDICARE, OTHER | LOC: M RAD 16:14 | PROVIDERS: ATTEND Family Medicine | DX: Z53.9 Procedure and treatment not carried out, unspecified reason (principal) ==

== ENCOUNTER → 2023-12-20 | Outpatient (CLI) | payer MEDICARE, OTHER | LOC: M RAD 07:46 | PROVIDERS: ATTEND Family Medicine | DX: Z12.2 Encounter for screening for malignant neoplasm of respiratory organs (principal); Z87.891 Personal history of nicotine dependence; R91.8 Other nonspecific abnormal finding of lung field ==

== ENCOUNTER → 2024-01-03 | Outpatient (REF) | payer MEDICARE, OTHER ==
[2024-01-03 15:07] LABS: APPEARANCE, URINE CLOUDY (CLEAR); BACTERIA, URINE AUTO NEGATIVE (NEGATIVE); BILIRUBIN, URINE AUTO NEGATIVE (NEGATIVE); BLOOD, URINE BLOOD 3+ (NEGATIVE); COLOR, URINE RED (YELLOW); GLUCOSE, URINE (UA) AUTO 1+ mg/dL (NEGATIVE); KETONE, URINE AUTO NEGATIVE (NEGATIVE); LEUKOCYTE ESTERASE, URINE AUTO 2+ (NEGATIVE); NITRITE, URINE AUTO NEGATIVE (NEGATIVE); PROTEIN, URINE AUTO 3+ mg/dL (NEGATIVE); RBC, URINE AUTO TNTC /HPF (0-3); SPECIFIC GRAVITY URINE AUTO 1.011 (1.002-1.035); SQUAMOUS EPITHELIAL CELL UR AU 5 /HPF (0-6); UROBILINOGEN, URINE AUTO 0.2 mg/dL (0.0-2.0); WBC, URINE AUTO 154 /HPF (0-3)
== END ==
LOC: M SFHCPLAZ 14:42
PROVIDERS: ATTEND Family Medicine
DX: N39.0 Urinary tract infection, site not specified (principal)

== ENCOUNTER → 2024-01-03 | Outpatient (REF) | payer MEDICARE, OTHER | LOC: M SFHCPLAZ 17:53 | PROVIDERS: ATTEND Family Medicine | DX: N39.0 Urinary tract infection, site not specified (principal) ==

== ENCOUNTER → 2024-01-09 | Outpatient (REF) | payer MEDICARE, OTHER ==
[2024-01-09 17:57] LABS: APPEARANCE, URINE HAZY (CLEAR); BACTERIA, URINE AUTO 1+ (NEGATIVE); BILIRUBIN, URINE AUTO NEGATIVE (NEGATIVE); BLOOD, URINE BLOOD 1+ (NEGATIVE); COLOR, URINE YELLOW (YELLOW); GLUCOSE, URINE (UA) AUTO NEGATIVE (NEGATIVE); KETONE, URINE AUTO TRACE mg/dL (NEGATIVE); LEUKOCYTE ESTERASE, URINE AUTO 2+ (NEGATIVE); NITRITE, URINE AUTO NEGATIVE (NEGATIVE); PROTEIN, URINE AUTO 1+ mg/dL (NEGATIVE); RBC, URINE AUTO 2 /HPF (0-3); SPECIFIC GRAVITY URINE AUTO 1.011 (1.002-1.035); SQUAMOUS EPITHELIAL CELL UR AU 4 /HPF (0-6); UROBILINOGEN, URINE AUTO 0.2 mg/dL (0.0-2.0); WBC, URINE AUTO 5 /HPF (0-3)
== END ==
LOC: M SMT 16:56
PROVIDERS: ATTEND Physician Assistant
DX: Z87.898 Personal history of other specified conditions (principal); Z79.899 Other long term (current) drug therapy

== ENCOUNTER 2024-01-20 21:19 | Inpatient (IN) | payer MEDICARE, OTHER ==
[~2024-01-20] VITALS: Ht 152.4 cm; Wt 86.4 kg
[2024-01-20 22:15] LABS: BASO # 0.1 10^3/uL (0.0-0.2); BASO % 0.5 % (0.0-1.0); EOS # 0.1 10^3/uL (0.0-0.5); EOS % 1.1 % (0.0-3.0); HEMATOCRIT 44.2 % (36.0-47.0); HEMOGLOBIN 14.4 g/dl (12.0-15.5); LYMPH # 1.3 10^3/uL (1.5-5.0); MEAN CORPUSCULAR HEMOGLOBIN 26.3 pg (27.0-33.0); MEAN CORPUSCULAR HGB CONC 32.6 g/dl (32.0-36.5); MEAN CORPUSCULAR VOLUME 80.8 fl (80.0-96.0); MONO # 0.9 10^3/uL (0.0-0.8); NEUTROPHILS # 10.5 10^3/uL (1.5-8.5); NEUTROPHILS % 80.9 % (36.0-66.0); PLATELET COUNT, AUTOMATED 487 10^3/uL (150-450); RED BLOOD COUNT 5.47 10^6/uL (4.00-5.40)
[2024-01-20 22:52] LABS: CK-MB VALUE MASS < 1.0 NG/ML (<3.6)
[2024-01-20 22:54] LABS: ALBUMIN 3.3 G/DL (3.2-5.2); ALKALINE PHOSPHATASE 85 U/L (46-116); ALT/SGPT 19 U/L (7.0-40); AST/SGOT 19 U/L (<34); BILIRUBIN,DIRECT 0.2 MG/DL (<0.4); BILIRUBIN,TOTAL 0.5 MG/DL (0.3-1.2); TOTAL PROTEIN 7.1 G/DL (5.7-8.2)
[2024-01-20 22:55] LABS: THYROID STIMULATING HORMONE 2.719 uIU/ML (0.55-4.78)
[2024-01-20 23:02] LABS: CPK CREATINE PHOSPHOKINASE 265 U/L (34-145); MB/CK RELATIVE INDEX 0.37 (< OR =4)
[2024-01-20] MEDS: ONDANSETRON 4MG 2ML VIAL IV ONE (23:07)
[2024-01-20] MEDS: POTASSIUM CHLORIDE 10% LIQ 20MEQ/15ML UDC PO ONE (23:07)
[2024-01-20] MEDS: NS 1,000 ML IV ONE (23:09)
[2024-01-21 00:12] LABS: CPK CREATINE PHOSPHOKINASE 268 U/L (34-145)
[2024-01-21] MEDS: ALPRAZolam 0.5 MG TAB PO ONE (00:29)
[2024-01-21 00:42] LABS: BLOOD UREA NITROGEN 7 MG/DL (9-23); CALCIUM LEVEL 5.2 MG/DL (8.3-10.6); CARBON DIOXIDE LEVEL 27 MMOL/L (20-31); CHLORIDE LEVEL 93 MMOL/L (98-107); CK-MB VALUE MASS < 1.0 NG/ML (<3.6); CREATININE FOR GFR 0.65 MG/DL (0.55-1.30); FREE T4 1.64 NG/DL (0.89-1.76); GLOMERULAR FILTRATION RATE > 60.0 (>45); GLUCOSE, FASTING 141 MG/DL (74-106); MAGNESIUM LEVEL < 0.5 MG/DL (1.8-2.4); MB/CK RELATIVE INDEX 0.37 (< OR =4); PHOSPHORUS LEVEL 3.3 MG/DL (2.4-5.1); POTASSIUM SERUM 2.7 MMOL/L (3.5-5.1); PTH INTACT 33.6 PG/ML (18.5-88.0); SODIUM LEVEL 133 MMOL/L (136-145); THYROID STIMULATING HORMONE 2.207 uIU/ML (0.55-4.78)
[2024-01-21] MEDS ORDERED: POTASSIUM CHLORIDE 10% LIQ 20MEQ/15ML UDC PO ONE (00:45)
[2024-01-21] MEDS: MAG SULF 1GM/100ML (MAG RUN) 1 GM in IV 1 EA IV ONE ×2 (01:20→19:34)
[2024-01-21] MEDS: POTASSIUM CHLORIDE 10% LIQ 20MEQ/15ML UDC PO ONE ×2 (01:21→06:27)
[2024-01-21] MEDS: CALCIUM GLUCONATE 1,000 MG in D5W MINI-BAG PLUS 100 ML IV ONE ×2 (01:21→08:54)
[2024-01-21] MEDS ORDERED: METO1TAB7 PO (01:56)
[2024-01-21] MEDS ORDERED: AMLO1TAB25 PO (01:56)
[2024-01-21] MEDS ORDERED: CHLO125TA PO (01:56)
[2024-01-21] MEDS ORDERED: CLOP75TA2 PO (01:58)
[2024-01-21] MEDS ORDERED: METF-838 PO (01:58)
[2024-01-21] MEDS ORDERED: GLIM1TAB84 PO (01:58)
[2024-01-21] MEDS ORDERED: DEXTROSE 50% 50ML SYRINGE IV PRN (02:00)
[2024-01-21] MEDS ORDERED: HOME MED LIST COMPLETE! XX SCH (02:00)
[2024-01-21] MEDS ORDERED: GLUCOSE 4 GM CHEW PO PRN (02:00)
[2024-01-21] MEDS ORDERED: GLUCAGON INJ 1MG VIAL SC PRN (02:00)
[2024-01-21] MEDS ORDERED: clonazePAM 0.5 MG TAB PO PRN (02:00)
[2024-01-21] MEDS: LR 1,000 ML IV SCH (04:45)
[2024-01-21 05:35] LABS: CALCIUM LEVEL 5.4 MG/DL (8.3-10.6); MAGNESIUM LEVEL 0.7 MG/DL (1.8-2.4); POTASSIUM SERUM 3.2 MMOL/L (3.5-5.1)
[2024-01-21 06:17] VITALS: BP 94/61; TEMP 97.9; O2SAT 95
[2024-01-21] MEDS ORDERED: PILL CUTTER 1 EACH XX PRN (06:20)
[2024-01-21] MEDS: MAG SULF 1GM/100ML (MAG RUN) 1 GM in IV 1 EA IV SCH ×2 (06:27→11:25)
[2024-01-21 07:37] LABS: HEMATOCRIT 41.1 % (36.0-47.0); HEMOGLOBIN 13.1 g/dl (12.0-15.5); MEAN CORPUSCULAR HEMOGLOBIN 25.8 pg (27.0-33.0); MEAN CORPUSCULAR HGB CONC 31.9 g/dl (32.0-36.5); MEAN CORPUSCULAR VOLUME 81.1 fl (80.0-96.0); PLATELET COUNT, AUTOMATED 467 10^3/uL (150-450); RED BLOOD COUNT 5.07 10^6/uL (4.00-5.40); WHITE BLOOD COUNT 9.7 10^3/uL (4.0-10.0)
[2024-01-21] MEDS: INSULIN LISPRO (NovoLOG) PER UNIT SC SCH ×2 (07:58→20:41)
[2024-01-21 08:00] VITALS: BP 104/53; TEMP 97.8; O2SAT 92
[2024-01-21 08:22] LABS: ALBUMIN 2.8 G/DL (3.2-5.2); ALKALINE PHOSPHATASE 79 U/L (46-116); ALT/SGPT 17 U/L (7.0-40); AST/SGOT 14 U/L (<34); BILIRUBIN,TOTAL 0.5 MG/DL (0.3-1.2); BLOOD UREA NITROGEN < 5 MG/DL (9-23); CALCIUM LEVEL 5.7 MG/DL (8.3-10.6); CARBON DIOXIDE LEVEL 28 MMOL/L (20-31); CHLORIDE LEVEL 103 MMOL/L (98-107); GLOMERULAR FILTRATION RATE > 60.0 (>45); GLUCOSE, FASTING 111 MG/DL (74-106); POTASSIUM SERUM 3.5 MMOL/L (3.5-5.1); SODIUM LEVEL 139 MMOL/L (136-145); TOTAL PROTEIN 6.2 G/DL (5.7-8.2)
[2024-01-21] MEDS: KCL 10MEQ/100ML SWI (KRUN) 10 MEQ in IV 1 EA IV SCH (08:54)
[2024-01-21] MEDS: ENOXAPARIN 40MG/0.4ML SYRINGE (J1650 PER 10MG) SC SCH (08:55)
[2024-01-21] MEDS: OMEPRAZOLE 20MG CAP PO SCH (08:55)
[2024-01-21] MEDS: CLOPIDOGREL 75 MG TAB PO SCH (08:55)
[2024-01-21 08:59] VITALS: BP 104/53
[2024-01-21] MEDS: METOPROLOL SUCC (TopROL XL) 50MG **XL** TAB PO SCH (08:59)
[2024-01-21] MEDS: CHLORTHALIDONE 12.5MG PER 1/2 TABLET PO SCH (09:00)
[2024-01-21] MEDS: LOSARTAN 50MG TABLET PO SCH (09:00)
[2024-01-21 10:15] LABS: IONIZED CALCIUM 3.3 MG/DL (4.5-5.3)
[2024-01-21 10:27] LABS: BASO # 0.1 10^3/uL (0.0-0.2); BASO % 0.7 % (0.0-1.0); EOS # 0.2 10^3/uL (0.0-0.5); EOS % 2.3 % (0.0-3.0); HEMATOCRIT 41.5 % (36.0-47.0); HEMOGLOBIN 13.3 g/dl (12.0-15.5); LYMPH # 0.7 10^3/uL (1.5-5.0); LYMPH % 7.7 % (24.0-44.0); MEAN CORPUSCULAR HEMOGLOBIN 26.1 pg (27.0-33.0); MEAN CORPUSCULAR VOLUME 81.4 fl (80.0-96.0); MONO # 0.6 10^3/uL (0.0-0.8); MONO % 6.7 % (2.0-8.0); NEUTROPHILS # 7.8 10^3/uL (1.5-8.5); NEUTROPHILS % 82.2 % (36.0-66.0); PLATELET COUNT, AUTOMATED 481 10^3/uL (150-450); WHITE BLOOD COUNT 9.5 10^3/uL (4.0-10.0)
[2024-01-21 10:36] LABS: MAGNESIUM LEVEL 1.3 MG/DL (1.8-2.4); POTASSIUM SERUM 3.5 MMOL/L (3.5-5.1)
[2024-01-21 12:00] VITALS: BP 113/65; TEMP 98.4; O2SAT 93
[2024-01-21] MEDS: CALCIUM GLUCONATE 1,000 MG in D5W MINI-BAG PLUS 100 ML IV SCH (13:27)
[2024-01-21] MEDS: CALCITRIOL 0.25 MCG CAP (S0169) PO SCH (13:44)
[2024-01-21] MEDS: K-PHOS ORIGINAL (POT.ACID PHOSPHATE) 500MG TAB PO SCH (13:44)
[2024-01-21] MEDS: CALCIUM/VITAMIN D 500 MG TAB PO SCH (15:28)
[2024-01-21 18:42] LABS: BLOOD UREA NITROGEN 7 MG/DL (9-23); CALCIUM LEVEL 6.9 MG/DL (8.3-10.6); CARBON DIOXIDE LEVEL 28 MMOL/L (20-31); CHLORIDE LEVEL 103 MMOL/L (98-107); CREATININE FOR GFR 0.56 MG/DL (0.55-1.30); GLOMERULAR FILTRATION RATE > 60.0 (>45); GLUCOSE, FASTING 164 MG/DL (74-106); MAGNESIUM LEVEL 1.7 MG/DL (1.8-2.4); PHOSPHORUS LEVEL 4.2 MG/DL (2.4-5.1); POTASSIUM SERUM 3.5 MMOL/L (3.5-5.1); SODIUM LEVEL 137 MMOL/L (136-145)
[2024-01-21 20:00] VITALS: BP 119/67; TEMP 97.7; O2SAT 92
[2024-01-21] MEDS: ROSUVASTATIN 10 MG TAB (CRESTOR) PO SCH (20:41)
[2024-01-22] VITALS: BP 135/63; TEMP 98; O2SAT 93
[2024-01-22 04:00] VITALS: BP 142/71; TEMP 97.8; O2SAT 92
[2024-01-22 04:33] LABS: IONIZED CALCIUM 4.1 MG/DL (4.5-5.3)
[2024-01-22 04:40] LABS: BASO # 0.1 10^3/uL (0.0-0.2); BASO % 0.8 % (0.0-1.0); EOS # 0.3 10^3/uL (0.0-0.5); EOS % 3.8 % (0.0-3.0); HEMOGLOBIN 12.9 g/dl (12.0-15.5); LYMPH # 0.9 10^3/uL (1.5-5.0); LYMPH % 9.8 % (24.0-44.0); MEAN CORPUSCULAR HEMOGLOBIN 26.3 pg (27.0-33.0); MEAN CORPUSCULAR HGB CONC 30.7 g/dl (32.0-36.5); MEAN CORPUSCULAR VOLUME 85.7 fl (80.0-96.0); MONO # 0.7 10^3/uL (0.0-0.8); MONO % 7.4 % (2.0-8.0); NEUTROPHILS # 6.9 10^3/uL (1.5-8.5); NEUTROPHILS % 77.5 % (36.0-66.0); PLATELET COUNT, AUTOMATED 432 10^3/uL (150-450); WHITE BLOOD COUNT 8.9 10^3/uL (4.0-10.0)
[2024-01-22 05:03] LABS: BLOOD UREA NITROGEN 6 MG/DL (9-23); CALCIUM LEVEL 7.5 MG/DL (8.3-10.6); CARBON DIOXIDE LEVEL 34 MMOL/L (20-31); CHLORIDE LEVEL 102 MMOL/L (98-107); CREATININE FOR GFR 0.64 MG/DL (0.55-1.30); GLOMERULAR FILTRATION RATE > 60.0 (>45); GLUCOSE, FASTING 155 MG/DL (74-106); MAGNESIUM LEVEL 1.9 MG/DL (1.8-2.4); PHOSPHORUS LEVEL 4.5 MG/DL (2.4-5.1); POTASSIUM SERUM 3.7 MMOL/L (3.5-5.1); SODIUM LEVEL 138 MMOL/L (136-145)
[2024-01-22 07:25] VITALS: O2SAT 84
[2024-01-22 07:32] VITALS: BP 124/57; TEMP 98.8; O2SAT 90
[2024-01-22 11:04] LABS: PROCALCITONIN 0.09 ng/ml
[2024-01-22 12:00] VITALS: BP 118/69; TEMP 97.8; O2SAT 94
[2024-01-22] MEDS: ACETAMINOPHEN TAB 650MG DOSE (2X325MG) PO PRN (12:51)
[2024-01-22] MEDS: guaiFENesin ER TABLET 600 MG TAB PO SCH (12:52)
[2024-01-22] MEDS ORDERED: CALCD50TA PO (16:18)
[2024-01-22] MEDS ORDERED: MAGN400T2 PO (16:18)
[2024-01-22] MEDS ORDERED: RISATAB3 PO (16:18)
[2024-01-22] MEDS ORDERED: MUCI600T31 PO (16:18)
[2024-01-22] MEDS ORDERED: VENTAER INH (16:20)
[2024-01-22] MEDS ORDERED: LACTOBACILLUS ACIDOPHILUS CAP (BACID) PO SCH (18:00)
== END 2024-01-22 18:22 | disposition home health service (06) | DRG 641 ==
LOC: M ED 21:19 → M ED INP 01-21 04:32 → M ICU 01-21 06:11
PROVIDERS: ADMIT Internal Medicine Pulmonary Disease; ATTEND Internal Medicine Pulmonary Disease
DX: E83.42 Hypomagnesemia (principal); I10 Essential (primary) hypertension; E78.5 Hyperlipidemia, unspecified; E11.9 Type 2 diabetes mellitus without complications; E87.6 Hypokalemia; E83.51 Hypocalcemia; R19.7 Diarrhea, unspecified; E66.9 Obesity, unspecified; F41.9 Anxiety disorder, unspecified; G47.00 Insomnia, unspecified; M48.061 Spinal stenosis, lumbar region without neurogenic claudication; Z79.899 Other long term (current) drug therapy; Z11.52 Encounter for screening for COVID-19; Z88.1 Allergy status to other antibiotic agents; Z88.8 Allergy status to other drugs, medicaments and biological substances; Z86.73 Personal history of transient ischemic attack (TIA), and cerebral infarction without residual deficits; Z87.891 Personal history of nicotine dependence; K21.9 Gastro-esophageal reflux disease without esophagitis; R20.2 Paresthesia of skin; R25.2 Cramp and spasm; E86.0 Dehydration; R09.02 Hypoxemia

== ENCOUNTER → 2024-01-25 | Outpatient (CLI) | payer MEDICARE, OTHER ==
[~2024-01-25] MED LIST changes: +CALCD50TA PO; +CHLO125TA PO; +GLIM1TAB84 PO; +MAGN400T2 PO; +METF-838 PO; +METO1TAB7 PO; +MUCI600T31 PO; +RISATAB3 PO; +VENTAER INH
[2024-01-25 11:13] LABS: BLOOD UREA NITROGEN 10 MG/DL (9-23); CARBON DIOXIDE LEVEL 31 MMOL/L (20-31); CHLORIDE LEVEL 101 MMOL/L (98-107); GLOMERULAR FILTRATION RATE > 60.0 (>45); GLUCOSE, FASTING 161 MG/DL (74-106); MAGNESIUM LEVEL 1.1 MG/DL (1.8-2.4); POTASSIUM SERUM 4.1 MMOL/L (3.5-5.1); SODIUM LEVEL 138 MMOL/L (136-145)
== END ==
LOC: M PLALAB 08:53
PROVIDERS: ATTEND Internal Medicine
DX: E87.8 Other disorders of electrolyte and fluid balance, not elsewhere classified (principal)

== ENCOUNTER → 2024-01-27 | Outpatient (REF) | payer MEDICARE, OTHER | LOC: M WUC 19:23 | PROVIDERS: ATTEND Registered Nurse | DX: N20.9 Urinary calculus, unspecified (principal) ==

== ENCOUNTER → 2024-01-29 | Outpatient (CLI) | payer MEDICARE, OTHER | LOC: M RAD 09:21 | PROVIDERS: ATTEND Registered Nurse | DX: N20.9 Urinary calculus, unspecified (principal) ==

== ENCOUNTER → 2024-01-30 | Outpatient (REF) | payer MEDICARE, OTHER | LOC: M SFHCPLAZ 14:09 | DX: E83.42 Hypomagnesemia (principal) ==

== ENCOUNTER → 2024-02-05 | Outpatient (CLI) | payer MEDICARE, OTHER ==
[2024-02-05 11:13] LABS: ALBUMIN 3.4 G/DL (3.2-5.2); ALKALINE PHOSPHATASE 77 U/L (46-116); ALT/SGPT 14 U/L (7.0-40); AST/SGOT < 8 U/L (<34); BILIRUBIN,TOTAL 0.4 MG/DL (0.3-1.2); BLOOD UREA NITROGEN 9 MG/DL (9-23); CARBON DIOXIDE LEVEL 29 MMOL/L (20-31); CHLORIDE LEVEL 101 MMOL/L (98-107); CREATININE FOR GFR 0.57 MG/DL (0.55-1.30); GLOMERULAR FILTRATION RATE > 60.0 (>45); GLUCOSE, FASTING 150 MG/DL (74-106); MAGNESIUM LEVEL 0.9 MG/DL (1.8-2.4); POTASSIUM SERUM 4.4 MMOL/L (3.5-5.1); SODIUM LEVEL 138 MMOL/L (136-145); TOTAL PROTEIN 6.8 G/DL (5.7-8.2)
== END ==
LOC: M PLALAB 08:41
DX: E83.42 Hypomagnesemia (principal)

== ENCOUNTER → 2024-02-12 | Outpatient (CLI) | payer MEDICARE, OTHER ==
[~2024-02-12] MED LIST changes: -ROSU20TA61 PO; +ROSU20TA86 PO
[2024-02-12 10:51] LABS: ALBUMIN 3.5 G/DL (3.2-5.2); ALKALINE PHOSPHATASE 81 U/L (46-116); ALT/SGPT 13 U/L (7.0-40); AST/SGOT < 8 U/L (<34); BILIRUBIN,TOTAL 0.4 MG/DL (0.3-1.2); BLOOD UREA NITROGEN 10 MG/DL (9-23); CALCIUM LEVEL 9.3 MG/DL (8.3-10.6); CARBON DIOXIDE LEVEL 31 MMOL/L (20-31); CHLORIDE LEVEL 100 MMOL/L (98-107); CREATININE FOR GFR 0.59 MG/DL (0.55-1.30); GLOMERULAR FILTRATION RATE > 60.0 (>45); GLUCOSE, FASTING 165 MG/DL (74-106); MAGNESIUM LEVEL 1.3 MG/DL (1.8-2.4); POTASSIUM SERUM 5.3 MMOL/L (3.5-5.1); SODIUM LEVEL 139 MMOL/L (136-145); TOTAL PROTEIN 7.1 G/DL (5.7-8.2)
[2024-02-13 13:10] LABS: APPEARANCE, URINE HAZY (CLEAR); BACTERIA, URINE AUTO NEGATIVE (NEGATIVE); BILIRUBIN, URINE AUTO NEGATIVE (NEGATIVE); BLOOD, URINE BLOOD 3+ (NEGATIVE); COLOR, URINE AMBER (YELLOW); GLUCOSE, URINE (UA) AUTO NEGATIVE (NEGATIVE); KETONE, URINE AUTO TRACE mg/dL (NEGATIVE); LEUKOCYTE ESTERASE, URINE AUTO 2+ (NEGATIVE); MUCUS, URINE SMALL (NEGATIVE); NITRITE, URINE AUTO NEGATIVE (NEGATIVE); PROTEIN, URINE AUTO 2+ mg/dL (NEGATIVE); RBC, URINE AUTO TNTC /HPF (0-3); SQUAMOUS EPITHELIAL CELL UR AU 9 /HPF (0-6); UROBILINOGEN, URINE AUTO 0.2 mg/dL (0.0-2.0); WBC, URINE AUTO 42 /HPF (0-3)
[2024-02-17 07:38] LABS: 25-HYDROXY VITAMIN D2 < 8 pg/mL; 25-HYDROXY VITAMIN D3 36 pg/mL; VITAMIN D 1 25 DIHYDROXY 36 pg/mL (18-72)
== END ==
LOC: M PLALAB 08:37
DX: E55.9 Vitamin D deficiency, unspecified (principal); Z79.899 Other long term (current) drug therapy

== ENCOUNTER → 2024-02-19 | Outpatient (CLI) | payer MEDICARE, OTHER ==
[~2024-02-19] MED LIST changes: +ROSU20TA61 PO; -ROSU20TA86 PO
[2024-02-19 13:51] LABS: HEMATOCRIT 49.2 % (36.0-47.0); HEMOGLOBIN 14.8 g/dl (12.0-15.5); MEAN CORPUSCULAR HEMOGLOBIN 25.8 pg (27.0-33.0); MEAN CORPUSCULAR HGB CONC 30.1 g/dl (32.0-36.5); MEAN CORPUSCULAR VOLUME 85.9 fl (80.0-96.0); PLATELET COUNT, AUTOMATED 464 10^3/uL (150-450); RED BLOOD COUNT 5.73 10^6/uL (4.00-5.40)
[2024-02-19 14:21] LABS: ALBUMIN 3.7 G/DL (3.2-5.2); ALKALINE PHOSPHATASE 82 U/L (46-116); ALT/SGPT 15 U/L (7.0-40); AST/SGOT < 8 U/L (<34); BILIRUBIN,TOTAL 0.3 MG/DL (0.3-1.2); BLOOD UREA NITROGEN 14 MG/DL (9-23); CALCIUM LEVEL 9.7 MG/DL (8.3-10.6); CARBON DIOXIDE LEVEL 33 MMOL/L (20-31); CHLORIDE LEVEL 99 MMOL/L (98-107); CREATININE FOR GFR 0.62 MG/DL (0.55-1.30); GLOMERULAR FILTRATION RATE > 60.0 (>45); GLUCOSE, FASTING 130 MG/DL (74-106); POTASSIUM SERUM 5.3 MMOL/L (3.5-5.1); SODIUM LEVEL 136 MMOL/L (136-145); TOTAL PROTEIN 7.2 G/DL (5.7-8.2)
== END ==
LOC: M PLALAB 09:31
DX: R31.0 Gross hematuria (principal); E83.42 Hypomagnesemia; C67.9 Malignant neoplasm of bladder, unspecified

== ENCOUNTER → 2024-03-10 | Outpatient (CLI) | payer MEDICARE, OTHER ==
[~2024-03-10] MED LIST changes: -ROSU20TA61 PO; +ROSU20TA86 PO
[2024-03-10 11:34] LABS: FERRITIN 137.7 NG/ML (7.3-270.7)
[2024-03-10 11:36] LABS: TOTAL 25(OH) VITAMIN D 27.3 NG/ML (20.0-100.0)
[2024-03-10 11:38] LABS: ALBUMIN 3.6 G/DL (3.2-5.2); ALKALINE PHOSPHATASE 83 U/L (46-116); ALT/SGPT 15 U/L (7.0-40); AST/SGOT < 8 U/L (<34); BILIRUBIN,TOTAL 0.5 MG/DL (0.3-1.2); BLOOD UREA NITROGEN 14 MG/DL (9-23); CALCIUM LEVEL 10.6 MG/DL (8.3-10.6); CARBON DIOXIDE LEVEL 32 MMOL/L (20-31); CHLORIDE LEVEL 97 MMOL/L (98-107); CHOLESTEROL LEVEL 262 MG/DL (<200); CHOLESTEROL RISK RATIO 5.86 (<5); GLOMERULAR FILTRATION RATE > 60.0 (>45); GLUCOSE, FASTING 117 MG/DL (74-106); HDL CHOLESTEROL 44.7 MG/DL (>40); LDL CHOLESTEROL 179.7 MG/DL (<100); MAGNESIUM LEVEL 1.4 MG/DL (1.8-2.4); NON-HDL-C 217.3 MG/DL; POTASSIUM SERUM 4.2 MMOL/L (3.5-5.1); SODIUM LEVEL 138 MMOL/L (136-145); TOTAL PROTEIN 7.1 G/DL (5.7-8.2); TRIGLYCERIDES LEVEL 188 MG/DL (<150)
== END ==
LOC: M PLALAB 08:30
PROVIDERS: ATTEND Family Medicine
DX: E55.9 Vitamin D deficiency, unspecified (principal); D50.9 Iron deficiency anemia, unspecified; E78.00 Pure hypercholesterolemia, unspecified

== ENCOUNTER → 2024-03-28 | Outpatient (CLI) | payer MEDICARE, OTHER ==
[~2024-03-28] MED LIST changes: +ALPR0.25 PO; +MACR100C43 PO; +OXYB5TAB14 PO; +PYRI1TAB5 PO; +SEMA0.257 SQ; +TRES100I SC
[2024-03-28 14:32] LABS: ALBUMIN 3.5 G/DL (3.2-5.2); ALKALINE PHOSPHATASE 81 U/L (35-104); ALT/SGPT 11 U/L (7.0-40); AST/SGOT < 8 U/L (<34); BILIRUBIN,TOTAL 0.3 MG/DL (0.3-1.2); BLOOD UREA NITROGEN 13 MG/DL (9-23); CALCIUM LEVEL 9.3 MG/DL (8.3-10.6); CARBON DIOXIDE LEVEL 33 MMOL/L (20-31); CHLORIDE LEVEL 98 MMOL/L (98-107); GLOMERULAR FILTRATION RATE > 60.0 (>45); GLUCOSE, FASTING 186 MG/DL (74-106); POTASSIUM SERUM 3.6 MMOL/L (3.5-5.1); SODIUM LEVEL 138 MMOL/L (136-145); TOTAL PROTEIN 7.3 G/DL (5.7-8.2)
[2024-03-28 14:33] LABS: HEMATOCRIT 45.3 % (36.0-47.0); HEMOGLOBIN 14.5 g/dl (12.0-15.5); MEAN CORPUSCULAR HEMOGLOBIN 26.7 pg (27.0-33.0); MEAN CORPUSCULAR VOLUME 83.3 fl (80.0-96.0); PLATELET COUNT, AUTOMATED 468 10^3/uL (150-450); RED BLOOD COUNT 5.44 10^6/uL (4.00-5.40); WHITE BLOOD COUNT 10.4 10^3/uL (4.0-10.0)
== END ==
LOC: M PLALAB 10:05
PROVIDERS: ATTEND Urology
DX: R31.0 Gross hematuria (principal)

== ENCOUNTER → 2024-04-03 | Outpatient (CLI) | payer MEDICARE, OTHER ==
[~2024-04-03] MED LIST changes: -MACR100C43 PO; -OXYB5TAB14 PO; -PYRI1TAB5 PO
[2024-04-03 10:30] LABS: BASO # 0.1 10^3/uL (0.0-0.2); BASO % 0.8 % (0.0-1.0); EOS # 0.2 10^3/uL (0.0-0.5); HEMATOCRIT 47.3 % (36.0-47.0); LYMPH # 1.8 10^3/uL (1.5-5.0); LYMPH % 16.8 % (24.0-44.0); MEAN CORPUSCULAR HEMOGLOBIN 26.1 pg (27.0-33.0); MEAN CORPUSCULAR HGB CONC 31.7 g/dl (32.0-36.5); MEAN CORPUSCULAR VOLUME 82.3 fl (80.0-96.0); MONO # 0.7 10^3/uL (0.0-0.8); MONO % 6.8 % (2.0-8.0); NEUTROPHILS # 7.9 10^3/uL (1.5-8.5); NEUTROPHILS % 73.2 % (36.0-66.0); PLATELET COUNT, AUTOMATED 508 10^3/uL (150-450); RED BLOOD COUNT 5.75 10^6/uL (4.00-5.40); WHITE BLOOD COUNT 10.8 10^3/uL (4.0-10.0)
[2024-04-03 10:35] LABS: ALBUMIN 3.6 G/DL (3.2-5.2); ALKALINE PHOSPHATASE 84 U/L (35-104); ALT/SGPT 10 U/L (7.0-40); AST/SGOT < 8 U/L (<34); BILIRUBIN,TOTAL 0.4 MG/DL (0.3-1.2); BLOOD UREA NITROGEN 11 MG/DL (9-23); CALCIUM LEVEL 9.9 MG/DL (8.3-10.6); CARBON DIOXIDE LEVEL 34 MMOL/L (20-31); CHLORIDE LEVEL 95 MMOL/L (98-107); CHOLESTEROL LEVEL 161 MG/DL (<200); CHOLESTEROL RISK RATIO 3.34 (<5); GLOMERULAR FILTRATION RATE > 60.0 (>45); GLUCOSE, FASTING 119 MG/DL (74-106); HDL CHOLESTEROL 48.2 MG/DL (>40); MAGNESIUM LEVEL 1.5 MG/DL (1.8-2.4); NON-HDL-C 112.8 MG/DL; SODIUM LEVEL 137 MMOL/L (136-145); TOTAL PROTEIN 7.2 G/DL (5.7-8.2); TRIGLYCERIDES LEVEL 139 MG/DL (<150)
[2024-04-03 10:38] LABS: FERRITIN 102.5 NG/ML (7.3-270.7); TOTAL 25(OH) VITAMIN D 29.7 NG/ML (20.0-100.0)
== END ==
LOC: M PLALAB 08:15
PROVIDERS: ATTEND Family Medicine
DX: I11.0 Hypertensive heart disease with heart failure (principal); D50.9 Iron deficiency anemia, unspecified; E78.2 Mixed hyperlipidemia; I50.32 Chronic diastolic (congestive) heart failure; E55.9 Vitamin D deficiency, unspecified

== ENCOUNTER 2024-04-11 09:37 | Day surgery (SDC) | payer MEDICARE, OTHER ==
[~2024-04-11] VITALS: Ht 154.9 cm; Wt 86.5 kg
[2024-04-11] MEDS ORDERED: MIDAZOLAM INJ 2MG/2ML VIAL As Ordered ONE (11:09)
[2024-04-11] MEDS ORDERED: LIDOCAINE 2% 100MG/5ML SDV (FOR ANES.) As Ordered ONE (11:09)
[2024-04-11] MEDS ORDERED: ONDANSETRON 4MG 2ML VIAL As Ordered ONE (11:09)
[2024-04-11] MEDS ORDERED: dexmedeTOMIDine (4MCG/ML)200MCG/50ML BTL (PRECEDEX) As Ordered ONE (11:09)
[2024-04-11] MEDS ORDERED: ROCURONIUM BROMIDE 50MG/5ML VIAL As Ordered ONE (11:09)
[2024-04-11] MEDS ORDERED: propofoL 200 MG/20 ML VIAL As Ordered ONE (11:09)
[2024-04-11] MEDS ORDERED: fentaNYL 100 MCG/2 ML INJECTION As Ordered ONE (11:09)
[2024-04-11] MEDS: ceFAZolin SOD 2 GM in IV 1 EA IV ONE (12:15)
[2024-04-11] MEDS ORDERED: PHENYLephrine 500MCG 5ML (100MCG/ML) SYRINGE As Ordered ONE (12:21)
[2024-04-11] MEDS ORDERED: ALBUTEROL 6.7GM INHALER **FOR ANES. CART/OMNICELL ONLY As Ordered ONE (12:22)
[2024-04-11] MEDS ORDERED: ACETAMINOPHEN 1000MG/100ML IV BAG As Ordered ONE (12:22)
[2024-04-11] MEDS ORDERED: SUGAMMADEX SODIUM 500 MG/5 ML VIAL (BRIDION) As Ordered ONE (12:22)
[2024-04-11] MEDS ORDERED: ESMOLOL INJ 100MG/10ML VIAL As Ordered ONE (12:44)
[2024-04-11] MEDS ORDERED: fentaNYL 100 MCG/2 ML INJECTION IV PRN (13:10)
[2024-04-11] MEDS ORDERED: PYRI1TAB5 PO (13:11)
[2024-04-11] MEDS ORDERED: OXYB5TAB14 PO (13:11)
[2024-04-11] MEDS ORDERED: MACR100C43 PO (13:11)
[2024-04-11] MEDS: oxyCODONE 5MG TAB PO PRN (13:33)
[2024-04-11] MEDS: ONDANSETRON 4MG 2ML VIAL IV PRN (13:53)
[2024-04-11] MEDS: oxyBUTYnin 5 MG TAB PO STA (14:25)
[2024-04-11] MEDS: METOCLOPRAMIDE INJ 10MG/2ML VIAL IV ONE (14:35)
[2024-04-11] MEDS ORDERED: ACETAMINOPHEN 325 MG TAB PO PRN (15:25)
[2024-04-11] MEDS ORDERED: GLUCAGON INJ 1MG VIAL SC PRN (15:25)
[2024-04-11] MEDS ORDERED: ONDANSETRON 4MG 2ML VIAL IV PRN (15:25)
[2024-04-11] MEDS ORDERED: GLUCOSE 4 GM CHEW PO PRN (15:25)
[2024-04-11] MEDS ORDERED: DEXTROSE 50% 50ML SYRINGE IV PRN (15:25)
[2024-04-11 16:45] VITALS: BP 112/75; TEMP 97.5; O2SAT 90
[2024-04-11] MEDS: NORCO, ANEXSIA 5/325MG TABLET (HYDROcodone/ACETAMINOPHEN) PO PRN (16:57)
[2024-04-11] MEDS: D5W/0.45% SODIUM CHLORIDE 1,000 ML IV SCH (16:57)
[2024-04-11 17:15] VITALS: BP 115/73; TEMP 98.1; O2SAT 90
[2024-04-11] MEDS: INSULIN LISPRO (NovoLOG) PER UNIT SC SCH ×2 (17:18→20:21)
[2024-04-11 17:45] VITALS: BP 140/74; TEMP 98.1; O2SAT 94
[2024-04-11] MEDS: BISACODYL 10MG SUPP PR ONE (18:30)
[2024-04-11] MEDS: oxyBUTYnin 5 MG TAB PO SCH (18:30)
[2024-04-11 20:00] VITALS: BP 134/70; TEMP 97.3; O2SAT 93
[2024-04-11] MEDS: PHENAZOPYRIDINE 100 MG TAB PO SCH (20:20)
[2024-04-11] MEDS: NITROFURANTOIN (MACROBID) 100 MG CAP PO SCH (20:20)
[2024-04-11] MEDS: DOCUSATE SODIUM 100MG CAPSULE PO SCH (20:20)
[2024-04-11 21:00] VITALS: BP 132/71; TEMP 97; O2SAT 91
[2024-04-11 22:00] VITALS: BP 138/65; TEMP 97.9; O2SAT 91
[2024-04-12 06:50] VITALS: TEMP 98.2; O2SAT 92
[2024-04-12 08:34] VITALS: BP 126/66
[2024-04-12] MEDS: ROSUVASTATIN 10 MG TAB (CRESTOR) PO SCH (08:34)
[2024-04-12] MEDS: CHLORTHALIDONE 12.5MG PER 1/2 TABLET PO SCH (08:35)
[2024-04-12] MEDS: METOPROLOL SUCC (TopROL XL) 50MG **XL** TAB PO SCH (08:35)
[2024-04-12] MEDS: OMEPRAZOLE 20MG CAP PO SCH (08:35)
[2024-04-12] MEDS: ALPRAZolam 0.25 MG TAB PO PRN (09:36)
== END 2024-04-12 11:10 | disposition home or self-care (01) ==
LOC: M SDC 09:37 → M MS5PR 09:38 → M SDC 09:38 → M MS5PR 16:28 → UNDOADMOB 16:28 → M SDC 04-12 11:10 → UNDODISOB 04-12 11:10
PROVIDERS: ATTEND Urology
DX: N32.9 Bladder disorder, unspecified (principal); I10 Essential (primary) hypertension; E11.9 Type 2 diabetes mellitus without complications; E78.5 Hyperlipidemia, unspecified; F41.9 Anxiety disorder, unspecified; Z86.73 Personal history of transient ischemic attack (TIA), and cerebral infarction without residual deficits; Z79.02 Long term (current) use of antithrombotics/antiplatelets; Z79.84 Long term (current) use of oral hypoglycemic drugs; Z79.899 Other long term (current) drug therapy; Z88.1 Allergy status to other antibiotic agents; Z88.8 Allergy status to other drugs, medicaments and biological substances
CPT/HCPCS: 52235; 52332; 88305; 96360; 96361; C1769; C2617; J0131; J0690; J1100; J1805; J1815; J2250; J2371; J2405; J2765; J3010

== ENCOUNTER → 2024-05-12 | Outpatient (CLI) | payer MEDICARE, OTHER ==
[~2024-05-12] MED LIST changes: +MACR100C43 PO; +MAGN200T PO; +OXYB5TAB14 PO; +PYRI1TAB5 PO
[2024-05-12 11:03] LABS: HEMATOCRIT 45.4 % (36.0-47.0); HEMOGLOBIN 14.3 g/dl (12.0-15.5); MEAN CORPUSCULAR HGB CONC 31.5 g/dl (32.0-36.5); MEAN CORPUSCULAR VOLUME 82.4 fl (80.0-96.0); PLATELET COUNT, AUTOMATED 425 10^3/uL (150-450); RED BLOOD COUNT 5.51 10^6/uL (4.00-5.40); WHITE BLOOD COUNT 10.8 10^3/uL (4.0-10.0)
[2024-05-12 11:10] LABS: APPEARANCE, URINE HAZY (CLEAR); BACTERIA, URINE AUTO 1+ (NEGATIVE); BILIRUBIN, URINE AUTO NEGATIVE (NEGATIVE); BLOOD, URINE BLOOD 1+ (NEGATIVE); COLOR, URINE YELLOW (YELLOW); GLUCOSE, URINE (UA) AUTO NEGATIVE (NEGATIVE); KETONE, URINE AUTO NEGATIVE (NEGATIVE); LEUKOCYTE ESTERASE, URINE AUTO 3+ (NEGATIVE); MUCUS, URINE SMALL (NEGATIVE); NITRITE, URINE AUTO NEGATIVE (NEGATIVE); PROTEIN, URINE AUTO 2+ mg/dL (NEGATIVE); RBC, URINE AUTO 13 /HPF (0-3); SPECIFIC GRAVITY URINE AUTO 1.008 (1.002-1.035); SQUAMOUS EPITHELIAL CELL UR AU 3 /HPF (0-6); TRANSITIONAL EPITHELIAL AUTO 1 /HPF; UROBILINOGEN, URINE AUTO 0.2 mg/dL (0.0-2.0); WBC, URINE AUTO TNTC /HPF (0-3)
[2024-05-12 11:37] LABS: BLOOD UREA NITROGEN 14 MG/DL (9-23); CALCIUM LEVEL 8.3 MG/DL (8.3-10.6); CARBON DIOXIDE LEVEL 35 MMOL/L (20-31); CHLORIDE LEVEL 98 MMOL/L (98-107); CREATININE FOR GFR 0.68 MG/DL (0.55-1.30); GLOMERULAR FILTRATION RATE > 60.0 (>45); GLUCOSE, FASTING 159 MG/DL (74-106); POTASSIUM SERUM 3.7 MMOL/L (3.5-5.1); SODIUM LEVEL 140 MMOL/L (136-145)
== END ==
LOC: M PLALAB 07:45
PROVIDERS: ATTEND Physician Assistant
DX: Z01.818 Encounter for other preprocedural examination (principal); Z79.899 Other long term (current) drug therapy

== ENCOUNTER → 2024-05-16 | Outpatient (REF) | payer MEDICARE, OTHER | LOC: M SMT 17:14 | PROVIDERS: ATTEND Physician Assistant | DX: Z01.818 Encounter for other preprocedural examination (principal); Z79.899 Other long term (current) drug therapy ==

== ENCOUNTER 2024-05-22 10:14 | Day surgery (SDC) | payer MEDICARE, OTHER ==
[~2024-05-22] VITALS: Ht 152.4 cm; Wt 85.7 kg
[2024-05-22] MEDS ORDERED: LR 1,000 ML IV SCH (10:35)
[2024-05-22] MEDS ORDERED: ACETAMINOPHEN 1000MG/100ML IV BAG As Ordered ONE (11:18)
[2024-05-22] MEDS ORDERED: propofoL 200 MG/20 ML VIAL As Ordered ONE (11:19)
[2024-05-22] MEDS ORDERED: LIDOCAINE 2% 100MG/5ML SDV (FOR ANES.) As Ordered ONE (11:19)
[2024-05-22] MEDS ORDERED: ONDANSETRON 4MG 2ML VIAL As Ordered ONE (11:20)
[2024-05-22] MEDS ORDERED: fentaNYL 100 MCG/2 ML INJECTION As Ordered ONE (11:21)
[2024-05-22] MEDS ORDERED: MIDAZOLAM INJ 2MG/2ML VIAL As Ordered ONE (11:22)
[2024-05-22] MEDS ORDERED: KETOROLAC 60MG 2ML VIAL As Ordered ONE (11:31)
[2024-05-22] MEDS ORDERED: GLYCOPYRROLATE INJ 0.2 MG/ML 2 ML VIAL As Ordered ONE (11:32)
[2024-05-22] MEDS ORDERED: METOCLOPRAMIDE INJ 10MG/2ML VIAL As Ordered ONE (11:32)
[2024-05-22] MEDS ORDERED: KETAMINE HCL 200MG/20ML VIAL As Ordered ONE (11:33)
[2024-05-22] MEDS ORDERED: ROCURONIUM BROMIDE 50MG/5ML VIAL As Ordered ONE (11:36)
[2024-05-22] MEDS ORDERED: ALBUTEROL 6.7GM INHALER **FOR ANES. CART/OMNICELL ONLY As Ordered ONE (11:44)
[2024-05-22] MEDS: ceFAZolin SOD 2 GM in IV 1 EA IV ONE (11:50)
[2024-05-22] MEDS ORDERED: HYDROmorphone HCL 2MG/ML 1ML VIAL As Ordered ONE (12:04)
[2024-05-22] MEDS ORDERED: ONDANSETRON 4MG 2ML VIAL IV PRN (12:50)
[2024-05-22] MEDS ORDERED: fentaNYL 100 MCG/2 ML INJECTION IV PRN (12:50)
[2024-05-22] MEDS ORDERED: HYDROMORPHONE HCL 0.5 MG/ 0.5 ML SYRINGE IV PRN (12:50)
[2024-05-22] MEDS ORDERED: oxyCODONE 5MG TAB PO PRN (12:50)
[2024-05-22] MEDS: oxyBUTYnin 5 MG TAB PO ONE (14:45)
[2024-05-22] MEDS: PHENAZOPYRIDINE 100 MG TAB PO ONE (14:45)
[2024-05-22] MEDS: IPRATROPIUM 0.5MG/ALBUTEROL 2.5MG INH SOL UD 3ML (DUONEB) NEB ONE (14:45)
[2024-05-22 15:15] VITALS: BP 174/100
[2024-05-22] MEDS: LABETALOL 100MG/20ML VIAL IV PRN (15:15)
[2024-05-22] MEDS: KETOROLAC 30 MG/ML 1ML VIAL IV ONE (16:15)
[2024-05-22 17:10] VITALS: BP 143/75; TEMP 98.2; O2SAT 96
== END 2024-05-22 17:19 | disposition home or self-care (01) ==
LOC: M SDC 10:14
PROVIDERS: ATTEND Urology
DX: C67.1 Malignant neoplasm of dome of bladder (principal); D09.0 Carcinoma in situ of bladder; N30.80 Other cystitis without hematuria; E11.9 Type 2 diabetes mellitus without complications; I10 Essential (primary) hypertension; E78.00 Pure hypercholesterolemia, unspecified; Z79.899 Other long term (current) drug therapy; Z79.85 Long-term (current) use of injectable non-insulin antidiabetic drugs; K21.9 Gastro-esophageal reflux disease without esophagitis; Z79.84 Long term (current) use of oral hypoglycemic drugs; Z90.710 Acquired absence of both cervix and uterus; Z86.73 Personal history of transient ischemic attack (TIA), and cerebral infarction without residual deficits; Z88.8 Allergy status to other drugs, medicaments and biological substances; Z88.1 Allergy status to other antibiotic agents; Z87.891 Personal history of nicotine dependence
CPT/HCPCS: 52204; 52235; 88305; J0131; J0690; J1100; J1171; J1596; J1885; J1920; J2250; J2405; J2765; J3010

== ENCOUNTER → 2024-05-30 | Outpatient (CLI) | payer MEDICARE, OTHER ==
[2024-05-30 15:10] LABS: ALBUMIN 3.3 G/DL (3.2-5.2); BLOOD UREA NITROGEN 11 MG/DL (9-23); CALCIUM LEVEL 8.4 MG/DL (8.3-10.6); CARBON DIOXIDE LEVEL 34 MMOL/L (20-31); CHLORIDE LEVEL 100 MMOL/L (98-107); CREATININE FOR GFR 0.66 MG/DL (0.55-1.30); GLOMERULAR FILTRATION RATE > 60.0 (>45); GLUCOSE, FASTING 153 MG/DL (74-106); MAGNESIUM LEVEL 1.2 MG/DL (1.8-2.4); PHOSPHORUS LEVEL 3.4 MG/DL (2.4-5.1); POTASSIUM SERUM 4.1 MMOL/L (3.5-5.1); SODIUM LEVEL 138 MMOL/L (136-145)
== END ==
LOC: M PLALAB 09:47
PROVIDERS: ATTEND Family Medicine
DX: I10 Essential (primary) hypertension (principal)

== ENCOUNTER → 2024-06-25 | Outpatient (CLI) | payer MEDICARE, OTHER ==
[~2024-06-25] MED LIST changes: +ISOVUE-370 76% 100ML VIAL ONE
== END ==
LOC: M PLAIMG 09:58
PROVIDERS: ATTEND Urology
DX: C67.8 Malignant neoplasm of overlapping sites of bladder (principal); K57.30 Diverticulosis of large intestine without perforation or abscess without bleeding; I71.43 Infrarenal abdominal aortic aneurysm, without rupture
CPT/HCPCS: 36415; 74177; 80053; 85027; Q9967

== ENCOUNTER → 2024-06-25 | Outpatient (CLI) | payer MEDICARE, OTHER ==
[~2024-06-25] MED LIST changes: -ISOVUE-370 76% 100ML VIAL ONE
[2024-06-25 13:18] LABS: HEMATOCRIT 46.5 % (36.0-47.0); HEMOGLOBIN 14.7 g/dl (12.0-15.5); MEAN CORPUSCULAR HEMOGLOBIN 26.3 pg (27.0-33.0); MEAN CORPUSCULAR HGB CONC 31.6 g/dl (32.0-36.5); PLATELET COUNT, AUTOMATED 416 10^3/uL (150-450); WHITE BLOOD COUNT 8.7 10^3/uL (4.0-10.0)
[2024-06-25 13:48] LABS: ALBUMIN 3.5 G/DL (3.2-5.2); ALKALINE PHOSPHATASE 81 U/L (35-104); ALT/SGPT 14 U/L (7.0-40); AST/SGOT 9 U/L (<34); BILIRUBIN,TOTAL 0.4 MG/DL (0.3-1.2); BLOOD UREA NITROGEN 15 MG/DL (9-23); CALCIUM LEVEL 9.4 MG/DL (8.3-10.6); CARBON DIOXIDE LEVEL 30 MMOL/L (20-31); CHLORIDE LEVEL 98 MMOL/L (98-107); CREATININE FOR GFR 0.63 MG/DL (0.55-1.30); GLOMERULAR FILTRATION RATE > 60.0 (>45); GLUCOSE, FASTING 116 MG/DL (74-106); POTASSIUM SERUM 4.9 MMOL/L (3.5-5.1); SODIUM LEVEL 138 MMOL/L (136-145); TOTAL PROTEIN 6.7 G/DL (5.7-8.2)
== END ==
LOC: M PLALAB 10:05
PROVIDERS: ATTEND Physician Assistant
DX: C67.8 Malignant neoplasm of overlapping sites of bladder (principal)

== ENCOUNTER → 2024-07-07 | Outpatient (REF) | payer MEDICARE, OTHER ==
[2024-07-07 13:34] LABS: APPEARANCE, URINE HAZY (CLEAR); BACTERIA, URINE AUTO NEGATIVE (NEGATIVE); BILIRUBIN, URINE AUTO NEGATIVE (NEGATIVE); BLOOD, URINE BLOOD 2+ (NEGATIVE); COLOR, URINE YELLOW (YELLOW); GLUCOSE, URINE (UA) AUTO NEGATIVE (NEGATIVE); KETONE, URINE AUTO NEGATIVE (NEGATIVE); LEUKOCYTE ESTERASE, URINE AUTO 1+ (NEGATIVE); NITRITE, URINE AUTO NEGATIVE (NEGATIVE); PROTEIN, URINE AUTO 2+ mg/dL (NEGATIVE); RBC, URINE AUTO 60 /HPF (0-3); SPECIFIC GRAVITY URINE AUTO 1.012 (1.002-1.035); SQUAMOUS EPITHELIAL CELL UR AU 1 /HPF (0-6); UROBILINOGEN, URINE AUTO 0.2 mg/dL (0.0-2.0); WBC, URINE AUTO 15 /HPF (0-3)
== END ==
LOC: M SMT 12:13
PROVIDERS: ATTEND Physician Assistant
DX: C67.8 Malignant neoplasm of overlapping sites of bladder (principal); Z79.899 Other long term (current) drug therapy

== ENCOUNTER → 2024-07-14 | Outpatient (REF) | payer MEDICARE, OTHER ==
[2024-07-14 15:00] LABS: APPEARANCE, URINE HAZY (CLEAR); BACTERIA, URINE AUTO NEGATIVE (NEGATIVE); BILIRUBIN, URINE AUTO NEGATIVE (NEGATIVE); BLOOD, URINE BLOOD 2+ (NEGATIVE); COLOR, URINE YELLOW (YELLOW); GLUCOSE, URINE (UA) AUTO NEGATIVE (NEGATIVE); KETONE, URINE AUTO NEGATIVE (NEGATIVE); LEUKOCYTE ESTERASE, URINE AUTO 2+ (NEGATIVE); MUCUS, URINE SMALL (NEGATIVE); NITRITE, URINE AUTO NEGATIVE (NEGATIVE); PROTEIN, URINE AUTO 1+ mg/dL (NEGATIVE); RBC, URINE AUTO 97 /HPF (0-3); SPECIFIC GRAVITY URINE AUTO 1.006 (1.002-1.035); SQUAMOUS EPITHELIAL CELL UR AU 2 /HPF (0-6); UROBILINOGEN, URINE AUTO 0.2 mg/dL (0.0-2.0); WBC, URINE AUTO 18 /HPF (0-3)
== END ==
LOC: M SMT 14:38
PROVIDERS: ATTEND Physician Assistant
DX: C67.8 Malignant neoplasm of overlapping sites of bladder (principal)

== ENCOUNTER → 2024-07-28 | Outpatient (REF) | payer MEDICARE, OTHER ==
[2024-07-28 14:08] LABS: APPEARANCE, URINE CLEAR (CLEAR); BACTERIA, URINE AUTO NEGATIVE (NEGATIVE); BILIRUBIN, URINE AUTO NEGATIVE (NEGATIVE); BLOOD, URINE BLOOD 2+ (NEGATIVE); COLOR, URINE YELLOW (YELLOW); GLUCOSE, URINE (UA) AUTO NEGATIVE (NEGATIVE); KETONE, URINE AUTO NEGATIVE (NEGATIVE); LEUKOCYTE ESTERASE, URINE AUTO NEGATIVE (NEGATIVE); NITRITE, URINE AUTO NEGATIVE (NEGATIVE); PROTEIN, URINE AUTO NEGATIVE (NEGATIVE); RBC, URINE AUTO 38 /HPF (0-3); SPECIFIC GRAVITY URINE AUTO 1.006 (1.002-1.035); SQUAMOUS EPITHELIAL CELL UR AU 0 /HPF (0-6); UROBILINOGEN, URINE AUTO 0.2 mg/dL (0.0-2.0); WBC, URINE AUTO 3 /HPF (0-3)
== END ==
LOC: M SMT 12:42
PROVIDERS: ATTEND Physician Assistant
DX: C67.8 Malignant neoplasm of overlapping sites of bladder (principal); Z79.899 Other long term (current) drug therapy

== ENCOUNTER → 2024-08-11 | Outpatient (REF) | payer MEDICARE, OTHER ==
[2024-08-11 13:32] LABS: APPEARANCE, URINE CLEAR (CLEAR); BACTERIA, URINE AUTO NEGATIVE (NEGATIVE); BILIRUBIN, URINE AUTO NEGATIVE (NEGATIVE); BLOOD, URINE BLOOD 2+ (NEGATIVE); COLOR, URINE YELLOW (YELLOW); GLUCOSE, URINE (UA) AUTO NEGATIVE (NEGATIVE); KETONE, URINE AUTO NEGATIVE (NEGATIVE); LEUKOCYTE ESTERASE, URINE AUTO 1+ (NEGATIVE); NITRITE, URINE AUTO NEGATIVE (NEGATIVE); PROTEIN, URINE AUTO 1+ mg/dL (NEGATIVE); RBC, URINE AUTO 31 /HPF (0-3); SQUAMOUS EPITHELIAL CELL UR AU 1 /HPF (0-6); UROBILINOGEN, URINE AUTO 0.2 mg/dL (0.0-2.0); WBC, URINE AUTO 8 /HPF (0-3)
== END ==
LOC: M SMT 12:42
PROVIDERS: ATTEND Physician Assistant
DX: C67.8 Malignant neoplasm of overlapping sites of bladder (principal); Z79.899 Other long term (current) drug therapy

== ENCOUNTER → 2024-08-25 | Outpatient (REF) | payer MEDICARE, OTHER ==
[2024-08-25 15:49] LABS: APPEARANCE, URINE CLEAR (CLEAR); BACTERIA, URINE AUTO NEGATIVE (NEGATIVE); BILIRUBIN, URINE AUTO NEGATIVE (NEGATIVE); BLOOD, URINE BLOOD 2+ (NEGATIVE); COLOR, URINE YELLOW (YELLOW); GLUCOSE, URINE (UA) AUTO NEGATIVE (NEGATIVE); KETONE, URINE AUTO NEGATIVE (NEGATIVE); LEUKOCYTE ESTERASE, URINE AUTO TRACE (NEGATIVE); MUCUS, URINE SMALL (NEGATIVE); NITRITE, URINE AUTO NEGATIVE (NEGATIVE); PROTEIN, URINE AUTO 1+ mg/dL (NEGATIVE); RBC, URINE AUTO 13 /HPF (0-3); SPECIFIC GRAVITY URINE AUTO 1.012 (1.002-1.035); SQUAMOUS EPITHELIAL CELL UR AU 0 /HPF (0-6); UROBILINOGEN, URINE AUTO 0.2 mg/dL (0.0-2.0); WBC, URINE AUTO 10 /HPF (0-3)
== END ==
LOC: M SMT 15:05
PROVIDERS: ATTEND Physician Assistant
DX: C67.8 Malignant neoplasm of overlapping sites of bladder (principal); Z79.899 Other long term (current) drug therapy

== ENCOUNTER → 2024-09-01 | Outpatient (REF) | payer MEDICARE, OTHER ==
[2024-09-01 17:18] LABS: APPEARANCE, URINE CLEAR (CLEAR); BACTERIA, URINE AUTO NEGATIVE (NEGATIVE); BILIRUBIN, URINE AUTO NEGATIVE (NEGATIVE); BLOOD, URINE BLOOD 2+ (NEGATIVE); COLOR, URINE YELLOW (YELLOW); GLUCOSE, URINE (UA) AUTO NEGATIVE (NEGATIVE); KETONE, URINE AUTO NEGATIVE (NEGATIVE); LEUKOCYTE ESTERASE, URINE AUTO NEGATIVE (NEGATIVE); NITRITE, URINE AUTO NEGATIVE (NEGATIVE); PROTEIN, URINE AUTO NEGATIVE (NEGATIVE); RBC, URINE AUTO 4 /HPF (0-3); SPECIFIC GRAVITY URINE AUTO 1.008 (1.002-1.035); SQUAMOUS EPITHELIAL CELL UR AU 0 /HPF (0-6); TRANSITIONAL EPITHELIAL AUTO <1 /HPF; UROBILINOGEN, URINE AUTO 0.2 mg/dL (0.0-2.0); WBC, URINE AUTO 3 /HPF (0-3)
== END ==
LOC: M SMT 17:01
PROVIDERS: ATTEND Physician Assistant
DX: R31.0 Gross hematuria (principal)

== ENCOUNTER → 2024-09-08 | Outpatient (REF) | payer MEDICARE, OTHER ==
[2024-09-08 13:39] LABS: APPEARANCE, URINE HAZY (CLEAR); BACTERIA, URINE AUTO 1+ (NEGATIVE); BILIRUBIN, URINE AUTO NEGATIVE (NEGATIVE); BLOOD, URINE BLOOD 2+ (NEGATIVE); COLOR, URINE YELLOW (YELLOW); GLUCOSE, URINE (UA) AUTO NEGATIVE (NEGATIVE); KETONE, URINE AUTO NEGATIVE (NEGATIVE); LEUKOCYTE ESTERASE, URINE AUTO 1+ (NEGATIVE); MUCUS, URINE SMALL (NEGATIVE); NITRITE, URINE AUTO NEGATIVE (NEGATIVE); PROTEIN, URINE AUTO 1+ mg/dL (NEGATIVE); RBC, URINE AUTO 47 /HPF (0-3); SPECIFIC GRAVITY URINE AUTO 1.011 (1.002-1.035); SQUAMOUS EPITHELIAL CELL UR AU 1 /HPF (0-6); UROBILINOGEN, URINE AUTO 0.2 mg/dL (0.0-2.0); WBC, URINE AUTO 28 /HPF (0-3)
== END ==
LOC: M SMT 12:27
PROVIDERS: ATTEND Physician Assistant
DX: R82.90 Unspecified abnormal findings in urine (principal)

== ENCOUNTER → 2024-09-15 | Outpatient (REF) | payer MEDICARE, OTHER ==
[2024-09-15 13:30] LABS: APPEARANCE, URINE CLEAR (CLEAR); BACTERIA, URINE AUTO NEGATIVE (NEGATIVE); BILIRUBIN, URINE AUTO NEGATIVE (NEGATIVE); BLOOD, URINE BLOOD 1+ (NEGATIVE); COLOR, URINE YELLOW (YELLOW); GLUCOSE, URINE (UA) AUTO NEGATIVE (NEGATIVE); KETONE, URINE AUTO NEGATIVE (NEGATIVE); LEUKOCYTE ESTERASE, URINE AUTO 1+ (NEGATIVE); MUCUS, URINE SMALL (NEGATIVE); NITRITE, URINE AUTO NEGATIVE (NEGATIVE); PROTEIN, URINE AUTO NEGATIVE (NEGATIVE); RBC, URINE AUTO 4 /HPF (0-3); SPECIFIC GRAVITY URINE AUTO 1.008 (1.002-1.035); SQUAMOUS EPITHELIAL CELL UR AU 0 /HPF (0-6); UROBILINOGEN, URINE AUTO 0.2 mg/dL (0.0-2.0); WBC, URINE AUTO 19 /HPF (0-3)
== END ==
LOC: M SMT 12:53
PROVIDERS: ATTEND Nurse Practitioner Family
DX: D49.4 Neoplasm of unspecified behavior of bladder (principal)

== ENCOUNTER → 2024-09-22 | Outpatient (REF) | payer MEDICARE, OTHER ==
[2024-09-22 13:24] LABS: APPEARANCE, URINE CLEAR (CLEAR); BACTERIA, URINE AUTO 1+ (NEGATIVE); BILIRUBIN, URINE AUTO NEGATIVE (NEGATIVE); BLOOD, URINE BLOOD 1+ (NEGATIVE); COLOR, URINE YELLOW (YELLOW); GLUCOSE, URINE (UA) AUTO NEGATIVE (NEGATIVE); KETONE, URINE AUTO NEGATIVE (NEGATIVE); LEUKOCYTE ESTERASE, URINE AUTO 2+ (NEGATIVE); NITRITE, URINE AUTO NEGATIVE (NEGATIVE); PROTEIN, URINE AUTO NEGATIVE (NEGATIVE); RBC, URINE AUTO 1 /HPF (0-3); SPECIFIC GRAVITY URINE AUTO 1.006 (1.002-1.035); SQUAMOUS EPITHELIAL CELL UR AU 0 /HPF (0-6); UROBILINOGEN, URINE AUTO 0.2 mg/dL (0.0-2.0); WBC, URINE AUTO 40 /HPF (0-3)
== END ==
LOC: M SMT 12:43
PROVIDERS: ATTEND Physician Assistant
DX: R31.0 Gross hematuria (principal)

== ENCOUNTER → 2024-12-01 | Outpatient (REF) | payer MEDICARE, OTHER ==
[2024-12-01 17:37] LABS: APPEARANCE, URINE CLEAR (CLEAR); BACTERIA, URINE AUTO NEGATIVE (NEGATIVE); BILIRUBIN, URINE AUTO NEGATIVE (NEGATIVE); BLOOD, URINE BLOOD 1+ (NEGATIVE); GLUCOSE, URINE (UA) AUTO NEGATIVE (NEGATIVE); KETONE, URINE AUTO NEGATIVE (NEGATIVE); LEUKOCYTE ESTERASE, URINE AUTO NEGATIVE (NEGATIVE); NITRITE, URINE AUTO NEGATIVE (NEGATIVE); PROTEIN, URINE AUTO NEGATIVE (NEGATIVE); RBC, URINE AUTO 33 /HPF (0-3); SPECIFIC GRAVITY URINE AUTO 1.009 (1.002-1.035); SQUAMOUS EPITHELIAL CELL UR AU 1 /HPF (0-6); UROBILINOGEN, URINE AUTO 0.2 mg/dL (0.0-2.0); WBC, URINE AUTO 2 /HPF (0-3)
== END ==
LOC: M SMT 16:45
PROVIDERS: ATTEND Urology
DX: Z01.818 Encounter for other preprocedural examination (principal); Z79.899 Other long term (current) drug therapy

== ENCOUNTER 2024-12-08 10:01 | Day surgery (SDC) | payer MEDICARE, OTHER ==
[~2024-12-08] VITALS: Ht 152.4 cm; Wt 91.8 kg
[2024-12-08] MEDS: LR 1,000 ML IV SCH (09:45)
[2024-12-08] MEDS ORDERED: SUGAMMADEX SODIUM 500 MG/5 ML VIAL As Ordered ONE (10:12)
[2024-12-08] MEDS ORDERED: ROCURONIUM BROMIDE 50MG/5ML VIAL As Ordered ONE (10:12)
[2024-12-08] MEDS ORDERED: ONDANSETRON 4MG 2ML VIAL As Ordered ONE (10:12)
[2024-12-08] MEDS ORDERED: LIDOCAINE 2% 100 MG/5 ML SDV (FOR ANES.) As Ordered ONE (10:12)
[2024-12-08] MEDS ORDERED: dexAMETHasone 4 MG/ML 1 ML VIAL As Ordered ONE (10:15)
[2024-12-08] MEDS ORDERED: MIDAZOLAM INJ 2 MG/2 ML VIAL As Ordered ONE (11:15)
[2024-12-08] MEDS: ceFAZolin SOD 2 GM IV ONCE IV ONE (12:12)
[2024-12-08] MEDS ORDERED: ACETAMINOPHEN 1000MG/100ML IV BAG As Ordered ONE (12:19)
[2024-12-08] MEDS ORDERED: LR 1,000 ML IV SCH (13:05)
[2024-12-08] MEDS ORDERED: ONDANSETRON 4MG 2ML VIAL IV PRN (13:05)
[2024-12-08] MEDS ORDERED: HYDROMORPHONE HCL 0.5 MG/0.5 ML SYRINGE IV PRN (13:05)
[2024-12-08] MEDS: ALBUTEROL SULFATE 2.5 MG/0.5 ML INH CONCENTRATE NEB SOLN INH ONE (13:35)
[2024-12-08 14:20] VITALS: BP 136/78; TEMP 97.2; O2SAT 94
== END 2024-12-08 14:50 | disposition home or self-care (01) ==
LOC: M SDC 10:01
PROVIDERS: ATTEND Urology
DX: C67.1 Malignant neoplasm of dome of bladder (principal); E11.9 Type 2 diabetes mellitus without complications; I10 Essential (primary) hypertension; J44.9 Chronic obstructive pulmonary disease, unspecified; E78.00 Pure hypercholesterolemia, unspecified; K21.9 Gastro-esophageal reflux disease without esophagitis; Z79.899 Other long term (current) drug therapy; Z79.02 Long term (current) use of antithrombotics/antiplatelets; Z79.84 Long term (current) use of oral hypoglycemic drugs; Z79.85 Long-term (current) use of injectable non-insulin antidiabetic drugs; Z86.73 Personal history of transient ischemic attack (TIA), and cerebral infarction without residual deficits; Z88.8 Allergy status to other drugs, medicaments and biological substances; Z88.1 Allergy status to other antibiotic agents; Z90.710 Acquired absence of both cervix and uterus; Z87.891 Personal history of nicotine dependence
CPT/HCPCS: 52240; 88305; J0131; J0690; J1100; J2250; J2405; J3010

== ENCOUNTER → 2024-12-29 | Outpatient (REF) | payer MEDICARE, OTHER ==
[2024-12-29 19:05] LABS: APPEARANCE, URINE CLEAR (CLEAR); BACTERIA, URINE AUTO 1+ (NEGATIVE); BILIRUBIN, URINE AUTO NEGATIVE (NEGATIVE); BLOOD, URINE BLOOD 3+ (NEGATIVE); GLUCOSE, URINE (UA) AUTO NEGATIVE (NEGATIVE); KETONE, URINE AUTO NEGATIVE (NEGATIVE); LEUKOCYTE ESTERASE, URINE AUTO 1+ (NEGATIVE); NITRITE, URINE AUTO NEGATIVE (NEGATIVE); PROTEIN, URINE AUTO NEGATIVE (NEGATIVE); RBC, URINE AUTO 73 /HPF (0-3); SPECIFIC GRAVITY URINE AUTO 1.008 (1.002-1.035); SQUAMOUS EPITHELIAL CELL UR AU 1 /HPF (0-6); UROBILINOGEN, URINE AUTO 0.2 mg/dL (0.0-2.0); WBC, URINE AUTO 9 /HPF (0-3)
== END ==
LOC: M SMT 16:47
PROVIDERS: ATTEND Physician Assistant
DX: R31.9 Hematuria, unspecified (principal)

== ENCOUNTER → 2025-02-13 | Outpatient (CLI) | payer MEDICARE, OTHER ==
[2025-02-13 12:50] LABS: BASO # 0.1 10^3/uL (0.0-0.2); BASO % 0.7 % (0.0-1.0); EOS # 0.4 10^3/uL (0.0-0.5); EOS % 3.6 % (0.0-3.0); LYMPH # 1.9 10^3/uL (1.5-5.0); LYMPH % 18.7 % (24.0-44.0); MONO # 0.7 10^3/uL (0.0-0.8); MONO % 6.8 % (2.0-8.0); NEUTROPHILS # 7.1 10^3/uL (1.5-8.5); NEUTROPHILS % 69.8 % (36.0-66.0); PLATELET COUNT, AUTOMATED 437 10^3/uL (150-450)
[2025-02-13 13:25] LABS: ALT/SGPT 14 U/L (7.0-40); AST/SGOT 11 U/L (<34); CALCIUM LEVEL 9.5 MG/DL (8.3-10.6); CARBON DIOXIDE LEVEL 33 MMOL/L (20-31); CHLORIDE LEVEL 89 MMOL/L (98-107); CHOLESTEROL LEVEL 157 MG/DL (<200); CHOLESTEROL RISK RATIO 2.61 (<5); CREATININE FOR GFR 0.59 MG/DL (0.55-1.30); GLOMERULAR FILTRATION RATE > 90.0 (>45); LDL CHOLESTEROL 74.2 MG/DL (<100); MAGNESIUM LEVEL 1.7 MG/DL (1.8-2.4); NON-HDL-C 97.0 MG/DL; POTASSIUM SERUM 4.6 MMOL/L (3.5-5.1); SODIUM LEVEL 131 MMOL/L (136-145); TRIGLYCERIDES LEVEL 114 MG/DL (<150)
[2025-02-13 13:26] LABS: PTH INTACT 51.5 PG/ML (18.5-88.0)
[2025-02-13 13:27] LABS: TOTAL 25(OH) VITAMIN D 25.9 NG/ML (20.0-100.0)
[2025-02-13 13:36] LABS: ESTIMATED AVERAGE GLUCOSE 134.0 MG/DL (60-110)
== END ==
LOC: M PLALAB 08:30
PROVIDERS: ATTEND Family Medicine
DX: D50.9 Iron deficiency anemia, unspecified (principal); I11.0 Hypertensive heart disease with heart failure; E11.9 Type 2 diabetes mellitus without complications; E78.2 Mixed hyperlipidemia; I50.32 Chronic diastolic (congestive) heart failure; E55.9 Vitamin D deficiency, unspecified; K76.0 Fatty (change of) liver, not elsewhere classified

== ENCOUNTER → 2025-02-19 | Outpatient (CLI) | payer MEDICARE, OTHER ==
[2025-02-19 14:57] LABS: BASO # 0.1 10^3/uL (0.0-0.2); BASO % 0.9 % (0.0-1.0); EOS # 0.3 10^3/uL (0.0-0.5); EOS % 2.5 % (0.0-3.0); LYMPH # 2.1 10^3/uL (1.5-5.0); LYMPH % 17.6 % (24.0-44.0); MONO # 0.9 10^3/uL (0.0-0.8); MONO % 7.9 % (2.0-8.0); NEUTROPHILS # 8.3 10^3/uL (1.5-8.5); NEUTROPHILS % 70.8 % (36.0-66.0); PLATELET COUNT, AUTOMATED 525 10^3/uL (150-450)
[2025-02-19 15:02] LABS: INR 0.85
[2025-02-19 15:04] LABS: APPEARANCE, URINE CLEAR (CLEAR); BACTERIA, URINE AUTO NEGATIVE (NEGATIVE); BILIRUBIN, URINE AUTO NEGATIVE (NEGATIVE); BLOOD, URINE BLOOD NEGATIVE (NEGATIVE); GLUCOSE, URINE (UA) AUTO NEGATIVE (NEGATIVE); KETONE, URINE AUTO NEGATIVE (NEGATIVE); LEUKOCYTE ESTERASE, URINE AUTO NEGATIVE (NEGATIVE); NITRITE, URINE AUTO NEGATIVE (NEGATIVE); PROTEIN, URINE AUTO NEGATIVE (NEGATIVE); RBC, URINE AUTO 0 /HPF (0-3); SPECIFIC GRAVITY URINE AUTO 1.005 (1.002-1.035); SQUAMOUS EPITHELIAL CELL UR AU 0 /HPF (0-6); UROBILINOGEN, URINE AUTO 0.2 mg/dL (0.0-2.0); WBC, URINE AUTO 1 /HPF (0-3)
[2025-02-19 15:23] LABS: CALCIUM LEVEL 9.2 MG/DL (8.3-10.6); CARBON DIOXIDE LEVEL 32 MMOL/L (20-31); CHLORIDE LEVEL 94 MMOL/L (98-107); CREATININE FOR GFR 0.59 MG/DL (0.55-1.30); GLOMERULAR FILTRATION RATE > 90.0 (>45); POTASSIUM SERUM 3.9 MMOL/L (3.5-5.1); SODIUM LEVEL 133 MMOL/L (136-145)
== END ==
LOC: M PLALAB 12:25
PROVIDERS: ATTEND Student in an Organized Health Care Education/Training Program
DX: Z01.818 Encounter for other preprocedural examination (principal); C67.8 Malignant neoplasm of overlapping sites of bladder; Z79.899 Other long term (current) drug therapy

== ENCOUNTER → 2025-02-25 | Outpatient (CLI) | payer MEDICARE, OTHER | LOC: M PLAIMG 10:31 | PROVIDERS: ATTEND Family Medicine | DX: J44.9 Chronic obstructive pulmonary disease, unspecified (principal) ==

== ENCOUNTER → 2025-04-02 | Outpatient (CLI) | payer MEDICARE, OTHER ==
[2025-04-02 13:49] LABS: PLATELET COUNT, AUTOMATED 371 10^3/uL (150-450)
[2025-04-02 13:50] LABS: APPEARANCE, URINE CLEAR (CLEAR); BACTERIA, URINE AUTO NEGATIVE (NEGATIVE); BILIRUBIN, URINE AUTO NEGATIVE (NEGATIVE); BLOOD, URINE BLOOD NEGATIVE (NEGATIVE); GLUCOSE, URINE (UA) AUTO 3+ mg/dL (NEGATIVE); KETONE, URINE AUTO NEGATIVE (NEGATIVE); LEUKOCYTE ESTERASE, URINE AUTO TRACE (NEGATIVE); NITRITE, URINE AUTO NEGATIVE (NEGATIVE); PROTEIN, URINE AUTO NEGATIVE (NEGATIVE); RBC, URINE AUTO 4 /HPF (0-3); SPECIFIC GRAVITY URINE AUTO 1.010 (1.002-1.035); SQUAMOUS EPITHELIAL CELL UR AU 1 /HPF (0-6); UROBILINOGEN, URINE AUTO 0.2 mg/dL (0.0-2.0); WBC, URINE AUTO 3 /HPF (0-3)
[2025-04-02 14:17] LABS: ALT/SGPT 19 U/L (7.0-40); AST/SGOT 13 U/L (<34); CALCIUM LEVEL 8.6 MG/DL (8.3-10.6); CARBON DIOXIDE LEVEL 31 MMOL/L (20-31); CHLORIDE LEVEL 95 MMOL/L (98-107); CREATININE FOR GFR 0.63 MG/DL (0.55-1.30); GLOMERULAR FILTRATION RATE > 90.0 (>45); POTASSIUM SERUM 4.3 MMOL/L (3.5-5.1); SODIUM LEVEL 135 MMOL/L (136-145)
== END ==
LOC: M PLALAB 11:18
PROVIDERS: ATTEND Urology
DX: C67.3 Malignant neoplasm of anterior wall of bladder (principal); Z79.899 Other long term (current) drug therapy

== ENCOUNTER → 2025-04-10 | Outpatient (CLI) | payer MEDICARE, OTHER | LOC: M PLAIMG 08:06 | PROVIDERS: ATTEND Nurse Practitioner Family | DX: C67.9 Malignant neoplasm of bladder, unspecified (principal) ==